=== PATIENT | female | born 1965 | race Caucasian/White ===

== ENCOUNTER 2020-11-29 14:17 | Outpatient (CLI) | payer OTHER, SELFPAY ==
[2020-11-30 22:34] LABS: SARS-CoV-2 RNA PCR Negative
== END 2020-11-29 14:18 | disposition home or self-care (01) ==
PROVIDERS: PCP Family Medicine; Visit Provider Family Medicine
DX: Z20.822 Contact with and (suspected) exposure to COVID-19 (principal)
CPT/HCPCS: C9803; U0003; U0005

== ENCOUNTER 2021-02-17 11:17 | Outpatient (NON) | payer OTHER, SELFPAY | END 2021-02-17 11:18 | disposition home or self-care (01) | PROVIDERS: Visit Provider Family Medicine | DX: N39.0 Urinary tract infection, site not specified (principal) | CPT/HCPCS: 87077; 87086; 87088; 87186 ==

== ENCOUNTER 2021-07-04 08:47 | Emergency (ER) | payer OTHER, SELFPAY ==
--- NOTE | ~2021-07-04 | XR_ITS ---
EXAMINATION: XR hip RT 2V w AP pelvis INDICATION: Right hip pain TECHNIQUE: AP view of the pelvis and two views of the right hip are obtained. COMPARISON: None available FINDINGS: Bone alignment is normal. There is no fracture. There is mild osteoarthritis of the hip. Ph leboliths are noted in the pelvis. There is calcified atherosclerosis. IMPRESSION: 1. Mild osteoarthritis of the hips. Reviewed, dictated and finalized at location A.
--- NOTE | 2021-07-04 08:58 | ED.EXTPRO ---
HPI - Extremity Problem General Chief complaint: Extremity Problem,Nontraumatic Stated complaint: HIP PAIN Time Seen by Provider: 07/04/21 09:03 Source: patient Mode of arrival: wheelchair Limitations: no limitations History of Present Illness HPI Narrative: 55-year-old woman comes in today complaining of right hip pain that started this morning and has become so severe she cannot bear weight. Patient states that her right hip was achy when she woke up this morning but after she got torque her pain became unbearable. She denies falls or injuries. She states that she has had sciatica long time ago. Pain radiates down to her right knee but not past. She denies any numbness or tingling. MD Complaint: joint paint Onset (ago): hour(s) (4) Pain Consistency: constant Location: right and other ( Hip) Quality: aching and sharp Radiation: distal Relieving factors: nothing Exacerbating factors: weight bearing, walking and palpation Associated symptoms: denies other symptoms Related Data Allergies Allergy/AdvReac Type Severity Reaction Status Date / Time azithromycin Allergy Intermediate Unknown Verified 02/17/21 11:25 [Zithromax Z-Lenny] erythromycin base Allergy Intermediate Unknown Verified 02/17/21 11:25 zinc oxide [Z-Bum] Allergy Intermediate Unknown Verified 02/17/21 11:25 No Known Allergies Allergy Verified 02/17/21 11:25 Review of Systems Review of Systems: All systems reviewed & are unremarkable except as noted in HPI and below Constitutional: Constitutional: Denies chills, Denies fever(s) and Denies weakness ENT: Denies nasal congestion and Denies sore throat Cardiovascular: Cardiovascular: Denies chest pain Respiratory: Respiratory: Denies cough and Denies dyspnea Gastrointestinal: Gastrointestinal: Denies abdominal pain, Denies nausea and Denies vomiting Musculoskeletal: Musculoskeletal: Reports back pain, Reports arthralgias and Denies joint swelling Integumentary/Breasts: Skin/Breast: Denies pruritus, Denies erythema and Denies rash Neurologic: Denies vertigo, Denies dizziness, Denies syncope, Denies focal weakness and Denies numbness Hematologic/Lymphatic: Hematologic/Lymphatic: Denies easy bleeding and Denies easy bruising Allergic/Immunologic: Allergic/Immunologic: Denies lip swelling and Denies throat swelling PMF Surgical History Surgical History History of appendectomy Social History Social History Smoking status: Current every day smoker Tobacco type: cigarettes Alcohol intake: current Substance use: never Substance use type: marijuana 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 Eyes: Conjunctivae: conjunctivae normal Pupils: Equal, round and reactive pupils present EOM: EOMs intact bilaterally Resp: Effort & Inspection: normal respiratory effort and not labored Auscultation: clear to auscultation bilaterally, no rales, no rhonchi and no wheezes Cardio: Rate: regular rate Rhythm: regular rhythm Heart sounds: no murmurs GI: GI Palp: Yes Soft to palpation and No Tenderness to palpation present (GI) Skin: General skin exam: normal color, no jaundice and no pallor Rashes: no rashes Neuro: General: patient oriented x3, moves all extremities, no focal motor deficits and CN's II-XI intact bilaterally Speech: normal speech Extrem: General: normal to inspection and no clubbing, cyanosis or edema Other: Tenderness with palpation over the right SI joint and the anterior hip joint. Held in flexion. Psych: Appearance: grossly normal and well kempt Mental Status: mental status grossly normal Affect: normal affect Attitude: cooperative Thought content: Yes Normal thought content present Course V
[2021-07-04 09:00] VITALS: BP 160/89; PULSE 66; RESP 20; TEMP 36.6; O2SAT 100
[2021-07-04] MEDS: ONDANSETRON INJ 4 MG/2 ML VIAL IV PUSH (09:24)
[2021-07-04] MEDS: HYDROmorphone HCL INJ (*CRX) 2 MG/ML VIAL 0.5 MG IV PUSH ×2 (09:25→10:12)
[2021-07-04 09:33] LABS: Basophils Absolute Auto 0.02 K/mm3 (0.00-0.10); Basophils Percent Auto 0.3 % (0.0-1.0); Eosinophils Absolute Auto 0.05 K/mm3 (0.02-0.50); Eosinophils Percent Auto 0.8 % (1.0-6.0); Hematocrit 37.8 % (35.0-49.0); Hemoglobin 12.8 g/dL (12.0-15.0); Immature Granulocyte Absolute 0.01 K/mm3 (0.00-0.00); Immature Granulocyte Percent A 0.2 % (0.0-0.0); Lymphocytes Absolute Auto 1.28 K/mm3 (1.10-4.50); Lymphocytes Percent Auto 19.6 % (18.0-42.0); Mean Corpuscular HGB Conc 33.9 g/dL (32.0-36.0); Mean Corpuscular Hemoglobin 31.2 pg (27.0-31.0); Mean Corpuscular Volume 92.2 fL (78.0-102.0); Mean Platelet Volume 10.1 fl (9.2-11.8); Monocytes Absolute Auto 0.46 K/mm3 (0.10-0.90); Monocytes Percent Auto 7.1 % (2.0-11.0); Neutrophils Absolute Auto 4.7 K/mm3 (1.7-7.2); Platelet Count Result 263 K/mm3 (150-420); Red Cell Distribution Width 12.8 % (11.6-14.4); White Blood Count 6.5 K/mm3 (4.8-10.8)
[2021-07-04 09:51] LABS: Alanine Aminotransferase 21 U/L (14-59); Albumin Level 3.6 g/dL (3.4-5.0); Alkaline Phosphatase 60 U/L (46-116); Anion Gap 10 mmol/L (8-16); Aspartate Amino Transferase 19 U/L (15-37); Bilirubin,Total 0.2 mg/dL (0.00-1.00); Blood Urea Nitrogen 16 mg/dL (7-18); Calcium 8.8 mg/dL (8.5-10.1); Carbon Dioxide 30 mmol/L (21-32); Chloride 103 mmol/L (98-108); Estimated CRCL calculation 63 ml/min; Estimated Glomerular Filt Rate > 60; Glucose 89 mg/dL (70-99); Osmolality Calculated 296 mOsm/kg (285-295); Potassium 4.3 mmol/L (3.5-5.1); Sodium 143 mmol/L (136-145); Total Protein 6.9 g/dL (6.4-8.2)
[2021-07-04 09:57] LABS: CRP < 0.2 mg/dL (0.0-0.9)
[2021-07-04 10:17] VITALS: BP 120/68; PULSE 88; RESP 18; TEMP 36.6; O2SAT 99
[2021-07-04 10:36] LABS: Erythrocyte Sedimentation Rate 24 mm/hr (0-20)
== END 2021-07-04 10:37 | disposition home or self-care (01) ==
PROVIDERS: Emergency Provider Emergency Medicine; PCP Nurse Practitioner Family
DX: M25.551 Pain in right hip (principal)
CPT/HCPCS: 36415; 73502; 80053; 85025; 85652; 86140; 96374; 96375; 96376; 99283; 99284; J1170; J2405

== ENCOUNTER 2022-03-28 16:52 | Emergency (ER) | payer OTHER, SELFPAY ==
--- NOTE | 2022-03-28 16:54 | ED_ITS ---
HPI - Back Pain/Injury General Stated Complaint: sleepy,back pain Related Data Home Medications Medication Instructions Recorded Confirmed No Home Medications 09/20/21 Allergies Allergy/AdvReac Type Severity Reaction Status Date / Time azithromycin Allergy Intermediate Unknown Verified 09/20/21 13:48 [Zithromax Z-Lenny] erythromycin base Allergy Intermediate Unknown Verified 09/20/21 13:48 zinc oxide [Z-Bum] Allergy Intermediate Unknown Verified 09/20/21 13:48 No Known Allergies Allergy Verified 09/20/21 13:48 [facility] Surgical History Surgical History History of appendectomy Social History Social History Smoking status: Current every day smoker Tobacco type: cigarettes Alcohol intake: current Substance use: never Substance use type: marijuana 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 cyclobenzaprine 10 mg tablet 10 mg PO .HS PRN (Reason: muscle spasm) Qty: 20 0RF Rx Instructions: can cause drowsiness Follow-up/Referrals: Lenora Salgado NP [Primary Care Provider] -
[2022-03-28 16:55] VITALS: BP 139/67; PULSE 94; RESP 18; TEMP 38.3; O2SAT 95
--- NOTE | 2022-03-28 17:12 | ED.GENADULT ---
HPI - General Adult General Chief complaint: Fever Stated complaint: sleepy,back pain Time Seen by Provider: 03/28/22 17:12 Source: patient and RN notes reviewed Mode of arrival: ambulatory Limitations: no limitations History of Present Illness HPI narrative: patient states that she started with some seen easing last evening. In today generalized body aches hurts when she takes a deep breath. Denies any chest pain. She denies any fever chills. Denies any nausea vomiting diarrhea. She denies any sore throat. She has been having a headache. MD complaint: body aches Onset (ago): day(s) (1) Severity: moderate Quality: aching, dull and constant Pain Consistency: constant Relieving factors: none Exacerbating factors: movement Associated symptoms: headaches, malaise and other ( Fatigue) Treatments prior to arrival: none Related Data Allergies Allergy/AdvReac Type Severity Reaction Status Date / Time azithromycin Allergy Intermediate Unknown Verified 03/28/22 17:09 [Zithromax Z-Lenny] erythromycin base Allergy Intermediate Unknown Verified 03/28/22 17:09 zinc oxide [Z-Bum] Allergy Intermediate Unknown Verified 03/28/22 17:09 Review of Systems Review of Systems: All systems reviewed & are unremarkable except as noted in HPI and below PMFSH Past Medical History Medical History (Updated 03/28/22 @ 18:09 by Jackson Meeks MD) Hyperlipidemia (03/19/17) Nicotine dependence, unspecified, uncomplicated Surgical History Surgical History History of appendectomy Social History Social History Smoking status: Current every day smoker Tobacco type: cigarettes Alcohol intake: current Substance use: never Substance use type: marijuana 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 Exam Const: General: no acute distress, alert and ill appearing acutely Nutritional Appearance: well nourished Orientation/consciousness: patient oriented x3 HENMT: Head: normal to inspection Ears: external ears normal General nose exam: Normal external nose present Face and sinus: normal facial exam Mouth: Yes moist mucous membranes Eyes: Conjunctivae: conjunctivae normal Pupils: Equal, round and reactive pupils present EOM: EOMs intact bilaterally Neck: Neck: normal visual inspection and no lymphadenopathy Resp: Effort & Inspection: normal respiratory effort Auscultation: wheezes throughout Cardio: Rate: regular rate Rhythm: regular rhythm Heart sounds: no murmurs GI: GI Palp: Yes Soft to palpation and No Tenderness to palpation present (GI) Auscultation: normal bowel sounds Back/Spine/Pelvis: Cervical Spine: cervical ROM normal Thoracic/Lumbar Spine: thoraco-lumbar ROM normal Skin: General skin exam: normal color Rashes: no rashes Neuro: General: patient oriented x3, moves all extremities, no focal motor deficits and CN's II-XI intact bilaterally Speech: normal speech Extrem: General: normal to inspection and no clubbing, cyanosis or edema Psych: Mental Status: mental status grossly normal Affect: normal affect Attitude: cooperative Course Vital Signs Vital signs: Vital Signs Temperature 38.3 C H 03/28/22 16:55 Pulse Rate 94 03/28/22 16:55 Respiratory Rate 18 03/28/22 16:55 Blood Pressure 139/67 03/28/22 16:55 Pulse Oximetry 95 03/28/22 16:55 Oxygen Delivery Room Air 03/28/22 16:55 Temperature 38.2 C H 03/28/22 18:20 Pulse Rate 90 03/28/22 18:20 Respiratory Rate 18 03/28/22 18:20 Blood Pressure 125/59 L 03/28/22 18:20 Pulse Oximetry 97 03/28/22 18:20 Oxygen Delivery Room Air 03/28/22 18:20 Medical Decision Making Vital Signs Vital Signs: Vital Signs Temperature 38.3 C H 03/28/22 16:55 Pulse Rate 94 03/28/22 16:55 Respiratory Rate 18 03/28/22 16:55 Blood Pressure 139/67 03/28/22 16:55 Pulse Oximetry 95 03/28/22 16
[2022-03-28 17:21] LABS: Add Urine Microscopic? YES; Bilirubin Urine Negative (Negative); Blood Urine 1+ (Negative); Color Urine Light Yellow (Yellow); Glucose Urine UA Negative (Negative); Ketones Urine Trace (Negative); Leukocyte Esterase Ur Negative LEU/UL (Negative); Nitrate Urine Positive (Negative); Protein Urine Negative (Negative); Specific Grav Ur 1.025 (1.010-1.020); pH Urine 6.5 (5.0-8.0)
[2022-03-28 17:22] LABS: Hematocrit 38.7 % (35.0-49.0); Hemoglobin 12.8 g/dL (12.0-15.0); Mean Corpuscular HGB Conc 33.1 g/dL (32.0-36.0); Mean Corpuscular Hemoglobin 30.3 pg (27.0-31.0); Mean Corpuscular Volume 91.5 fL (78.0-102.0); Mean Platelet Volume 9.9 fl (9.2-11.8); Platelet Count Result 257 K/mm3 (150-420); Red Blood Count 4.23 M/mm3 (4.20-5.40); Red Cell Distribution Width 12.8 % (11.6-14.4); White Blood Count 4.8 K/mm3 (4.8-10.8)
[2022-03-28 17:25] LABS: Appearance Urine Cloudy (Clear); Squamous Epithelial Cell Urine Few /hpf (Few); WBC Urine None seen /hpf (0-3)
[2022-03-28 17:26] LABS: Bacteria Urine 4+ /hpf
[2022-03-28 17:39] LABS: Alanine Aminotransferase 17 U/L (14-59); Albumin Level 3.7 g/dL (3.4-5.0); Alkaline Phosphatase 74 U/L (46-116); Anion Gap 8 mmol/L (8-16); Aspartate Amino Transferase 15 U/L (15-37); Bilirubin,Total 0.3 mg/dL (0.00-1.00); Blood Urea Nitrogen 10 mg/dL (7-18); Calcium 8.7 mg/dL (8.5-10.1); Carbon Dioxide 27 mmol/L (21-32); Chloride 96 mmol/L (98-108); Estimated CRCL calculation 60 ml/min; Estimated Glomerular Filt Rate > 60; Glucose 98 mg/dL (70-99); Osmolality Calculated 271 mOsm/kg (285-295); Potassium 3.9 mmol/L (3.5-5.1); Sodium 131 mmol/L (136-145); Total Protein 7.7 g/dL (6.4-8.2)
[2022-03-28 17:50] LABS: Influenza A QL RT-PCR Negative (Negative); Influenza B QL RT-PCR Negative (Negative); SARS-CoV-2 RNA PCR Positive (Negative)
[2022-03-28 17:52] LABS: Total Cells Counted 100
[2022-03-28 17:53] LABS: Band Neutrophils Percent 0 % (0-6); Basophils Percent Manual 0 % (0-1); Eosinophils Absolute Manual 0.09 K/mm3 (0.02-0.5); Eosinophils Percent Manual 2 % (1-6); Lymphocytes Absolute Manual 0.33 K/mm3 (1.1-4.5); Lymphocytes Percent Manual 7 % (18-44); Monocytes Absolute Manual 0.72 K/mm3 (0.1-0.90); Monocytes Percent Manual 15 % (3-9); Neutrophils Absolute Manual 3.64 K/mm3 (1.7-7.2); Neutrophils Percent Manual 76 % (46-73); Platelet Estimate Adequate (Adequate)
[2022-03-28 18:20] VITALS: BP 125/59; PULSE 90; RESP 18; TEMP 38.2; O2SAT 97
== END 2022-03-28 18:20 | disposition home or self-care (01) ==
PROVIDERS: Emergency Provider Emergency Medicine; PCP Nurse Practitioner Family
DX: U07.1 COVID-19 (principal); N39.0 Urinary tract infection, site not specified
CPT/HCPCS: 36415; 80053; 81001; 83735; 85025; 86140; 87086; 87186; 87502; 99283; C9803; U0003; U0005

== ENCOUNTER 2025-04-19 19:37 | Emergency (ER) | payer MEDICAID, SELFPAY ==
[2025-04-19] VITALS (8 sets, daily range): BP systolic 129–157; BP diastolic 59–92; PULSE 62–91; RESP 13–19; TEMP 36.5; O2SAT 93–97
--- NOTE | ~2025-04-19 | CT_ITS ---
EXAMINATION: CTA abd aorta runoff DATE: 04/19/2025 22:17 INDICATION: Periaortic bilateral leg numbness. TECHNIQUE: Computed tomographic angiography (CTA) of the abdominal, pelvis, and both lower extremitie s was performed with 150 mL Omnipaque-350 intravenous contrast. Automated exposure control and iterat gee reconstruction technique were employed. The dose-length product was 620.55 mGy-cm. Maximum intens ity projection 3D-reconstructions of the arteries were created by the technologist on a separate work station. COMPARISON: CT chest 03/13/2017; CT abdomen pelvis 06/29/2013. FINDINGS: ABDOMINAL AORTA AND ITS BRANCHES: No aneurysm or dissection. Moderate calcified and noncalcified atherosclerotic plaque. No severe aort ic branch vessel origin stenosis. Accessory left renal artery. PELVIC VASCULATURE: Moderate calcified atherosclerotic plaque. Severe left external iliac artery origin stenosis. RIGHT LOWER EXTREMITY VASCULATURE: Short segment noncalcified plaque in the proximal SFA causing moderate stenosis. Occlusion, just dist al to takeoff of the anterior tibial artery. Cessation of flow in the anterior tibial and peroneal ar teries above the level of the ankle. Spotty reconstitution of flow within the posterior tibial artery distal to the trifurcation, with cessation of flow below the level of the ankle. LEFT LOWER EXTREMITY VASCULATURE: Occlusion at the trifurcation. Distal reconstitution of flow in all 3 leg arteries. Flow is lost in t he peroneal artery above the level of the ankle. Flow is lost in the anterior tibial artery just belo w the level of the ankle. There is short segment loss of flow in the posterior tibial artery with rec onstitution distally in the foot. ADDITIONAL FINDINGS: Small pericardial fluid collection. Small hiatal hernia. Subcentimeter left midpole hypodensity, too small to characterize but most likely represents a cyst. 1.3 cm indeterminate density left adrenal le keon. Mild distal esophageal and moderate antral wall edema. Appendix not confidently identified. Sim ple appearing 1.8 cm right ovarian cyst. IMPRESSION: Small volume pericardial effusion. 1.3 cm indeterminate density left adrenal lesion. The absence of cancer history, this is probably esdras ign, consider 12 month follow-up adrenal CT. Severe short segment stenosis at the origin of the left external iliac artery. Noncalcified plaque causes moderate short segment stenosis in the proximal right SFA. Posterior tibial and peroneal occlusion in the right leg just distal to the takeoff of the anterior t ibial artery. No flow is seen below the level of the ankle in the right leg. Occlusion at the trifurcation in the left leg, with reconstitution of flow distally. 2 vessel flow vi a the anterior tibial and posterior tibial arteries below the level of the ankle, with cessation of f low in the anterior tibial artery shortly thereafter. Short segment occlusion in the distal posterior tibial artery below the level of the ankle, with distal reconstitution in the foot. Reviewed, dictated and finalized at location K. IMPRESSION: Small volume pericardial effusion. 1.3 cm indeterminate density left adrenal lesion. The absence of cancer history , this is probably benign, consider 12 month follow-up adrenal CT. Severe short segment stenosis at the origin of the left external iliac artery. Noncalcified plaque causes moderate short segment stenosis in the proximal righ t SFA. Posterior tibial and peroneal occlusion in the right leg just distal to the antwan eoff of the anterior tibial artery. No flow is seen below the level of the ankl e in the right leg. Occlusion at the trifurcation in the left leg, with reconstitution of flow dist ally. 2 vessel flow via the anterior tibial and posterior tibial arteries below the level of the ankle, with cessation of flow in the anterior tibial artery s hortly thereafter. Short segment occlusion in the distal posterior tibial arter y below the level of the ankle, with distal reconstitution in the foot.
--- NOTE | ~2025-04-19 | XR_ITS ---
EXAMINATION: XR chest 1V portable Exam Date/Time: 04/19/2025 21:05 CDT HISTORY: numbness lower extremities Comparison: 10/03/2017. RESULT: Lines, tubes, and devices: None. Lungs and pleura: Clear. Cardiomediastinal silhouette: Stable. Other: No acute osseous or upper abdominal finding. IMPRESSION: No acute cardiopulmonary process. Reviewed, dictated and finalized at location K.
--- NOTE | 2025-04-19 20:12 | PC.NURSE ---
DR VENTURA AT THE BEDSIDE
--- NOTE | 2025-04-19 20:25 | PC.NURSE ---
DR VENTURA AT THE BEDSIDE. ATTEMPTING TO USE DOPPLER WITH NO RESULTS.
--- NOTE | 2025-04-19 20:26 | ED_ITS ---
HPI - Extremity Injury (Lower) General Chief Complaint: Extremity Injury, Lower Stated Complaint: lower extremity pain Time Seen by Provider: 04/19/25 20:04 Source: patient Mode of arrival: ambulatory Limitations: no limitations History of Present Illness HPI Narrative: 59 years old white female came to the ED by private car complaining of feeling intermittent weakness, numbness, tingling ,distal leg bilaterally started 1 month ago and gradually getting worse. worse wearing shoes standing and walking, better if she hanging her legs out of the bed or chair. Sometime feel more in 1 ft more than the other and sometime both feet at the same time. Also intermittent cramps at the side of legs and bottom of feet bilaterally. Patient does not take regular medications, history of cigarette smoking for years Related Data Allergies Allergy/AdvReac Type Severity Reaction Status Date / Time azithromycin (Zithromax Allergy Intermediate Unknown Verified 04/19/25 19:53 Z-Lenny) erythromycin base Allergy Intermediate Unknown Verified 04/19/25 19:53 zinc oxide (Z-Bum) Allergy Intermediate Unknown Verified 04/19/25 19:53 Review of Systems 2 Review of Systems: All systems reviewed & are unremarkable except as noted in HPI and below PMFSH Past Medical History Medical History Hyperlipidemia (03/19/17) Nicotine dependence, unspecified, uncomplicated Surgical History Surgical History History of appendectomy Social History Social History Smoking status: Current every day smoker Tobacco type: cigarettes Alcohol intake: current Substance use: never Substance use type: marijuana Living arrangements: with family Occupation/Education: occupation 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 PATIENT WILL RECEIVE A PHONE CALL FROM HER OFFICE IN THE MORNING FOR APPOINTMENT Date: 04/19/25 Time: 23:50 Vital Signs Vital signs: Vital Signs Temperature 36.5 C 04/19/25 19:39 Pulse Rate 91 04/19/25 19:39 Respiratory Rate 18 04/19/25 19:39 Blood Pressure 129/76 04/19/25 19:39 Pulse Oximetry 97 04/19/25 19:39 Oxygen Delivery Room Air 04/19/25 19:39 Temperature 36.5 C 04/19/25 19:39 Pulse Rate 65 04/19/25 23:31 Respiratory Rate 16 04/19/25 23:31 Blood Pressure 141/74 H 04/19/25 23:31 Pulse Oximetry 93 04/19/25 23:31 Oxygen Delivery Room Air 04/19/25 23:31 MDM - Extremity Injury (Lower) MDM Narrative Medical decision making narrative: patient presents with the above symptoms including cold feet bilaterally been going for 1 month getting worse lately History of tobacco abuse Vital signs are stable Physical examination consistent with poor peripheral circulation of the lower extremity bilaterally, unable to detect pedal pulses or tibialis posterior pulses bilaterally Heparin started Differential diagnosis acute occlusion of the arterial blood flow to lower extremities secondary thrombosis, embolization. Blood workup today includes CBC, CMP and coags showed Differential Diagnosis Differential diagnosis: Likely other ( as above) Medical Records Attestation: I reviewed the patient's medical records. Lab Data Attestation: I reviewed the patient's lab results. 04/19/25 20:38 04/19/25 20:38 Labs: Lab Results 04/19/25 Range/Units 20:38 WBC 7.1 (4.8-10.8) K/mm3 RBC 4.23 (4.20-5.40) M/mm3 Hgb 12.8 (12.0-15.0) g/dL Hct 39.1 (35.0-49.0) % MCV 92.4 (78.0-102.0) fL MCH 30.3 (27.0-31.0) pg MCHC 32.7 (32-36) g/dL RDW 13.2 (11.6-14.4) % Plt Count 287 (150-420) K/mm3 MPV 10.0 (9.2-11.8) fl Immature Gran % (Auto) 0.1 H (0.0-0.0) % Neut % (Auto) 52.0 (50.0-70.0) % Lymph % (Auto) 34.6 (18.0-42.0) % Wolfe % (Auto) 10.3 (2.0-11.0) % Eos % (Auto) 2.4 (1.0-6.0) % Baso % (Auto) 0.6 (0.0-1.0) % Lymph # (Auto) 2.44 (1.10-4.50) K/mm3 Wolfe # (Auto) 0.73 (0.10-0.90) K/mm3 Eos # (Auto) 0.17 (0.02-0.50) K/mm3 Baso # (Auto) 0.04 (0.00-0.10) K/mm3 Abs Immat Gran (auto) 0.01 H (0.00-0.00) K/mm3 Absolute Neuts (auto) 3.67 (1.70-7.20) K/mm3 Absolute Nucleated RBC 0.00 (0.00-0.00) K/mm3 Nucleated RBC % 0.0 (0-0.0) % PT 10.3 (9.50-12.1) Seconds INR 0.9 APTT 23.7 L (23.9-30.70) Sec Sodium 137 (137-145) mmol/L Potassium 4.1 (3.4-5.0) mmol/L Chloride 103 (98-107) mmol/L Carbon Dioxide 31 H (22-30) mmol/L Anion Gap 3 L (4-12) mmol/L BUN 14 (7-17) mg/dL Creatinine 0.73 (0.7-1.0) mg/dL Estim Creat Clear Calc 62 ml/min Estimated GFR > 60 (59 - ) Glucose 86 (65-110) mg/dL Calculated Osmolality 283 L (285-295) mOsm/kg Calcium 8.9 (8.4-10.2) mg/dL Total Bilirubin 0.3 (0.2-1.3) mg/dL AST 23 (14-36) U/L ALT 15 (6-35) U/L Alkaline Phosphatase 58 (38-126) U/L Total Protein 7.1 (6.3-8.2) g/dL Albumin 4.0 (3.5-5.1) g/dL Discharge Plan Discharge Clinical Impression: Peripheral vascular disease of extremity with claudication, Tobacco abuse disorder Patient Disposition: Home Condition: Guarded Prognosis Instructions: How to Stop Smoking (ED), Peripheral Vascular Disease (ED) Additional Instructions: expect a phone call from the vascular surgeon, natalia Newton tomorrow Avoid strenuous activity and long walking Stop smoking Take Tylenol, ibuprofen as needed for pain Patient Language: Citizen Of [place] Prescriptions: New aspirin 81 mg tablet 81 mg PO DAILY Qty: 30 0RF atorvastatin [Lipitor] 10 mg tablet 10 mg PO DAILY Qty: 30 0RF No Action cephalexin 500 mg capsule 500 mg PO Q8H 7 Days Qty: 21 0RF Follow-up/Referrals: Lenora Salgado NP [Primary Care Provider] -
--- NOTE | 2025-04-19 20:27 | ECG_ITS ---
Test Date: 2025-04-19 20:48:41 Measurements Intervals [place] Rate: 70 P: 82 [place]: 168 QRS: 75 QRSD: 82 T: 76 QT: 368 QTc: 397 Interpretive Statements SINUS RHYTHM LOW QRS VOLTAGE IN PRECORDIAL LEADS [QRS DEFLECTION < 1.0 mV IN CHEST LEADS] BORDERLINE ECG No previous ECG available for comparison Electronically Signed On 04-21-2025 12:57:40 CDT by Dickson Smith M.D.
--- NOTE | 2025-04-19 20:34 | PC.NURSE ---
THIS RN UTILIZED DOPPLER TO BILATERAL LOWER EXTREMITIES. UNABLE TO DOPPLER PEDAL PULSE. DR VENTURA WAS NOTIFIED. PLAN FOR TRANSFER FOR VASCULAR SERVICES.
--- NOTE | 2025-04-19 20:55 | PC.NURSE ---
DR VENTURA SPOKE WITH PATIENT. WHEN THIS RN WENT INTO THE ROOM PATIENT IS CRYING. PATIENT STATES THAT SHE IS OVERWHELMED AND HAVING DIFFICULTY PROCESSING THIS NEW INFORMATION. PATIENT REQUESTED THAT IV LINE BE PUT ON HOLD. SHE WOULD LIKE TO MAKE SOME PHONE CALLS. MORE EDUCATION WAS GIVEN ABOUT CURRENT DIAGNOSIS.
[2025-04-19 20:56] LABS: Hematocrit 39.1 % (35.0-49.0); Hemoglobin 12.8 g/dL (12.0-15.0); Immature Granulocyte Percent A 0.1 % (0.0-0.0); Lymphocytes Absolute Auto 2.44 K/mm3 (1.10-4.50); Mean Corpuscular HGB Conc 32.7 g/dL (32-36); Mean Corpuscular Hemoglobin 30.3 pg (27.0-31.0); Mean Corpuscular Volume 92.4 fL (78.0-102.0); Nucleated Red Blood Cells Absolute Auto 0.00 K/mm3 (0.00-0.00); Nucleated Red Blood Cells Perc 0.0 % (0-0.0); Platelet Count Result 287 K/mm3 (150-420); Red Blood Count 4.23 M/mm3 (4.20-5.40); White Blood Count 7.1 K/mm3 (4.8-10.8)
[2025-04-19 21:12] LABS: INR 0.9; Partial Thromboplastin Time 23.7 Sec (23.9-30.70); Prothrombin Time 10.3 Seconds (9.50-12.1)
--- NOTE | 2025-04-19 21:14 | PC.NURSE ---
PATIENT CHANGED BACK INTO HER CLOTHES. ASKED PATIENT TO PLACE THE GOWN BACK ON. PATIENT HAS FURTHER IMAGING THAT WILL BE DONE
[2025-04-19 21:18] LABS: Alanine Aminotransferase 15 U/L (6-35); Albumin Level 4.0 g/dL (3.5-5.1); Alkaline Phosphatase 58 U/L (38-126); Anion Gap 3 mmol/L (4-12); Aspartate Amino Transferase 23 U/L (14-36); Bilirubin,Total 0.3 mg/dL (0.2-1.3); Blood Urea Nitrogen 14 mg/dL (7-17); Calcium 8.9 mg/dL (8.4-10.2); Carbon Dioxide 31 mmol/L (22-30); Chloride 103 mmol/L (98-107); Estimated CRCL calculation 62 ml/min; Estimated Glomerular Filt Rate > 60; Glucose 86 mg/dL (65-110); Osmolality Calculated 283 mOsm/kg (285-295); Potassium 4.1 mmol/L (3.4-5.0); Sodium 137 mmol/L (137-145); Total Protein 7.1 g/dL (6.3-8.2)
[2025-04-19] MEDS: HEPARIN SOD/D5W 100 UNITS/ML 25,000 UNITS/250 ML BAG 7 UNITS IV CONT (21:25)
--- NOTE | 2025-04-19 21:41 | PC.NURSE ---
NOTIFIED KAMRYN WITH LAB OF NEXT PTT DRAW AT [id number]
--- NOTE | 2025-04-19 21:58 | PC.NURSE ---
PATIENT BEING TRANSPORTED TO RADIOLOGY VIA WHEEL CHAIR
--- NOTE | 2025-04-19 22:17 | PC.NURSE ---
PATIENT IS MOANING AND WAILING IN THE ROOM WHEN SHE WAS QUIET BEFORE. ALL IMAGING HAS RESULTED. DR VENTURA IS AWARE
--- NOTE | 2025-04-19 22:40 | PC.NURSE ---
PATIENT IS RESTING ON STRETCHER. CALL LIGHT IN REACH. AWARE THAT WE ARE CURRENTLY WAITING ON CT REPORT. DENIES ANY NEEDS AT THIS TIME
[2025-04-19] MEDS: PHARMACIST COMMUNICATION ORDER 1 EACH XX (23:15)
== END 2025-04-20 00:05 | disposition home or self-care (01) ==
PROVIDERS: Emergency Provider Emergency Medicine; PCP Nurse Practitioner Family
DX: I73.89 Other specified peripheral vascular diseases (principal); F17.210 Nicotine dependence, cigarettes, uncomplicated
CPT/HCPCS: 36415; 71045; 75635; 80053; 85025; 85610; 85730; 93005; 96365; 96366; 99284; J1644; Q9967

== ENCOUNTER 2025-05-10 15:25 | Outpatient (CLI) | payer MEDICAID, SELFPAY ==
[2025-05-10 15:41] LABS: Hematocrit 38.0 % (35.0-49.0); Hemoglobin 12.6 g/dL (12.0-15.0); Immature Granulocyte Percent A 0.3 % (0.0-0.0); Lymphocytes Absolute Auto 2.18 K/mm3 (1.10-4.50); Mean Corpuscular HGB Conc 33.2 g/dL (32-36); Mean Corpuscular Hemoglobin 30.7 pg (27.0-31.0); Mean Corpuscular Volume 92.7 fL (78.0-102.0); Nucleated Red Blood Cells Absolute Auto 0.00 K/mm3 (0.00-0.00); Nucleated Red Blood Cells Perc 0.0 % (0-0.0); Platelet Count Result 320 K/mm3 (150-420); Red Blood Count 4.10 M/mm3 (4.20-5.40); White Blood Count 6.3 K/mm3 (4.8-10.8)
[2025-05-10 15:44] LABS: Glucose Urine UA Negative (Negative); Leukocyte Esterase Ur Negative LEU/UL (Negative); Nitrate Urine Negative (Negative); Specific Grav Ur 1.015 (1.010-1.020)
[2025-05-10 15:45] LABS: Add Urine Microscopic? YES; Appearance Urine Sl Cloudy (Clear)
[2025-05-10 16:06] LABS: Alanine Aminotransferase 16 U/L (6-35); Albumin Level 4.2 g/dL (3.5-5.1); Alkaline Phosphatase 54 U/L (38-126); Anion Gap 2 mmol/L (4-12); Aspartate Amino Transferase 25 U/L (14-36); Bilirubin,Total 0.3 mg/dL (0.2-1.3); Blood Urea Nitrogen 17 mg/dL (7-17); Calcium 9.0 mg/dL (8.4-10.2); Carbon Dioxide 30 mmol/L (22-30); Chloride 105 mmol/L (98-107); Estimated Glomerular Filt Rate > 60; Glucose 73 mg/dL (65-110); Osmolality Calculated 284 mOsm/kg (285-295); Potassium 4.5 mmol/L (3.4-5.0); Sodium 137 mmol/L (137-145); Total Protein 7.1 g/dL (6.3-8.2)
== END 2025-05-10 15:26 | disposition home or self-care (01) ==
LOC: CHSLAB 15:27
PROVIDERS: PCP Nurse Practitioner Family; Visit Provider Nurse Practitioner Family
DX: Z01.818 Encounter for other preprocedural examination (principal)
CPT/HCPCS: 36415; 80053; 81001; 85025

== ENCOUNTER 2025-06-19 | Inpatient (IN) | payer MEDICAID, SELFPAY ==
[2025-06-19] VITALS: BP 161/93; PULSE 107; RESP 18; TEMP 37.2; O2SAT 96
--- NOTE | ~2025-06-19 | XR_ITS ---
EXAMINATION: XR foot RT min 3V, 06/19/2025 0:08 CDT HISTORY: OM r/o (red and swollen) COMPARISON: No comparisons available. Findings: No acute fracture or malalignment. No significant degenerative changes. Soft tissues unremarkable. Impression: No acute fracture or malalignment. Reviewed, dictated and finalized at location A. Impression: No acute fracture or malalignment.
--- NOTE | ~2025-06-19 | CT_ITS ---
EXAMINATION: CT foot RT wo/w con DATE: 06/21/2025 10:06 INDICATION: Right foot swelling, discoloration and sensitivity to touch TECHNIQUE: High resolution computed tomography (CT) of the right foot was performed without and with 100 mL Omnipaque-350 intravenous contrast. Additional sagittal and coronal reconstructions were performed. Automated exposure control and iterative reconstruction technique were employed. The dose-length product was 1001.57 mGy-cm. COMPARISON: 04/19/2025 FINDINGS: Bone alignment is normal. No fracture. Minimal to mild polyarticular osteoarthritis throughout the right foot. No cortical erosions or periosteal reaction. Small Achilles and plantar calcaneal spurs. No evident joint effusions. There is subcutaneous edema about the visualized calf, ankle and extending most prominently over the dorsum of the foot. No evident abscess or soft tissue gas. Contrast is seen in the mid anterior tibial artery which occludes approximately 10 cm above the level of the ankle joint. Contrast is seen along short segments of the posterior tibial artery with intermittent occlusion the final occlusion occurring 4 cm above level of the ankle joint. Trace amount of contrast seen within the atretic peroneal artery extending to near the level of the ankle joint line. IMPRESSION: 1. Subcutaneous edema about the visualized lower leg most prominent over the dorsum of the foot. No abscess or soft tissue gas to suggest infection. 2. Peripheral vascular disease with occlusion of 2 tibial and posterior tibial arteries above level of the ankle and trace amount of contrast within the atretic peroneal artery which becomes indiscernible near the level of the ankle joint line. 2. Minimal to mild degenerative skeletal changes in the right foot. No acute osseous abnormality. Reviewed, dictated and finalized at location A. IMPRESSION: 1. Subcutaneous edema about the visualized lower leg most prominent over the do rsum of the foot. No abscess or soft tissue gas to suggest infection. 2. Peripheral vascular disease with occlusion of 2 tibial and posterior tibial arteries above level of the ankle and trace amount of contrast within the atret ic peroneal artery which becomes indiscernible near the level of the ankle join t line. 2. Minimal to mild degenerative skeletal changes in the right foot. No acute os seous abnormality.
--- NOTE | 2025-06-19 00:04 | ED_ITS ---
HPI - Extremity Injury (Lower) General Chief Complaint: Extremity Problem,Nontraumatic Stated Complaint: swollen foot Time Seen by Provider: 06/19/25 00:03 Source: patient Mode of arrival: ambulatory Limitations: no limitations History of Present Illness HPI Narrative: Patient is a 59-year-old female with upcoming right lower extremity artery graft exchange for PAD in the next week. She is here due to right lower extremity for foot pain and swelling for the past couple of days. She recently had her right foot great toe nail removal for ingrown toenail. She has red and swelling of the right lower foot from the ankle to the distal toes. complaint: foot injury ( Pain but not injury) Onset (ago): week(s) ( 1) Type of Injury: other ( great toenail removed on the right in the past 2 weeks) Place: home Severity: severe Severity scale (1-10): 8 Relieving factors: rest Exacerbating factors: weight bearing, movement and palpation Context: other ( right great toenail was removed recently and now she has a right foot swelling and pain and further she has PAD repair coming up in the next 2 weeks of the right lower extremity) Associated symptoms: numbness, tingling and able to partially bear weight Other symptoms: none Treatments prior to arrival: other ( none) Related Data Home Medications ?Medication ?Instructions ?Recorded ?Confirmed ?Last Taken ?Type acetaminophen 500 mg tablet 500 mg PO Q6H PRN 06/01/25 06/01/25 Unknown History (Tylenol Extra Strength) Allergies Allergy/AdvReac Type Severity Reaction Status Date / Time azithromycin (Zithromax Allergy Intermediate Unknown Verified 06/19/25 00:09 Z-Lenny) erythromycin base Allergy Intermediate Unknown Verified 06/19/25 00:09 zinc oxide (Z-Bum) Allergy Intermediate Unknown Verified 06/19/25 00:09 Review of Systems 2 Review of Systems: All systems reviewed & are unremarkable except as noted in HPI and below Constitutional: Constitutional: Reports no additional constitutional complaints Eyes: Eyes: Reports no additional eye complaints ENT: Reports system reviewed and no additional complaints, except as documented Cardiovascular: Cardiovascular: Reports no additional cardiovascular complaints Respiratory: Respiratory: Reports no additional respiratory complaints Gastrointestinal: Gastrointestinal: Reports no additional gastrointestinal complaints Genitourinary: Genitourinary: Reports no additional female genitourinary complaints Musculoskeletal: Musculoskeletal: Reports no additional musculoskeletal complaints Integumentary/Breasts: Skin/Breast: Reports system reviewed and no additional complaints, except as docu Neurologic: Reports system reviewed and no additional complaints, except as documented Psychiatric: Psychiatric: Reports no additional psychiatric complaints Endocrine: Endocrine: Reports no additional endocrine complaints Hematologic/Lymphatic: Hematologic/Lymphatic: Reports no additional hematologic/lymphatic complaints Allergic/Immunologic: Allergic/Immunologic: Reports no additional allergic/immunologic complaints PMFSH Past Medical History Medical History Hyperlipidemia (03/19/17) Nicotine dependence, unspecified, uncomplicated Surgical History Surgical History History of appendectomy Social History Social History Smoking status: Current every day smoker Tobacco type: cigarettes Alcohol intake: current Substance use: never Substance use type: marijuana Living arrangements: with family Occupation/Education: occupation 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 Exam 2 Const: General: healthy appearing Nutritional Appearance: well nourished Orientation/consciousness: patient oriented x3 HENMT: Head: normal to inspection Ears: external ears normal F alvarado/Nose/Sinus: Normal external nose present Eyes: Conjunctivae: conjunctivae normal Pupils: Equal, round and reactive pupils present EOM: EOMs intact bilaterally Neck: Neck: normal visual inspection Chest: Chest palpation & inspection: normal inspection of the chest Resp: Effort & Inspection: normal respiratory effort Cardio: Rate: regular rate Rhythm: regular rhythm Heart sounds: no murmurs GI: Inspection: non-distended GI Palp: Yes Soft to palpation and No Tenderness to palpation present (GI) Auscultation: normal bowel sounds : General: Yes bladder normal to palpation Back/Spine/Pelvis: Back: no CVA tenderness Skin: General skin exam: No normal color Rashes: rash noted Wounds: no wounds Other: right foot is red from the distal toes all the way to the right ankle and possibly circumferentially or close to circumferentially of erythema and tenderness; this is the same toe that the nail was removed and it looks red all around that area and down to the right ankle; history of gout in this same region; a few small scattered late wounds of healing wounds Neuro: General: patient oriented x3, moves all extremities, no meningeal signs, no focal motor deficits and CN's II-XI intact bilaterally Cranial nerves: Yes Nystagmus not present Speech: normal speech Gait exam (Neuro): Normal gait present Extrem: General: abnormal to inspection Other: see skin exam Psych: Mental Status: mental status grossly normal Affect: normal affect Attitude: cooperative Course Vital Signs Vital signs: Vital Signs Temperature 37.2 C 06/19/25 00:00 Pulse Rate 107 H 06/19/25 00:00 Respiratory Rate 18 06/19/25 00:00 Blood Pressure 161/93 H 06/19/25 00:00 Pulse Oximetry 96 06/19/25 00:00 Oxygen Delivery Room Air 06/19/25 00:00 Temperature 37.2 C 06/19/25 00:00 Pulse Rate 107 H 06/19/25 00:00 Respiratory Rate 18 06/19/25 00:00 Blood Pressure 161/93 H 06/19/25 00:00 Pulse Oximetry 96 06/19/25 00:00 Oxygen Delivery Room Air 06/19/25 00:00 MDM - Extremity Injury (Lower) MDM Narrative Medical decision making narrative: patient is a 59-year-old female with a right foot pain and swelling with upcoming repair planned. Basic labs start Rocephin and vanco IV. Dilaudid p.r.n.. Admit patient for further and continued IV antibiotics. X-ray. Lab Data Attestation: I reviewed the patient's lab results. 06/19/25 01:11 06/19/25 01:11 Labs: Lab Results 06/19/25 Range/Units 01:11 WBC 9.8 (4.8-10.8) K/mm3 RBC 3.96 L (4.20-5.40) M/mm3 Hgb 12.3 (12.0-15.0) g/dL Hct 38.2 (35.0-49.0) % MCV 96.5 (78.0-102.0) fL MCH 31.1 H (27.0-31.0) pg MCHC 32.2 (32-36) g/dL RDW 14.2 (11.6-14.4) % Plt Count 430 H (150-420) K/mm3 MPV 9.4 (9.2-11.8) fl Immature Gran % (Auto) 0.3 H (0.0-0.0) % Neut % (Auto) 62.5 (50.0-70.0) % Lymph % (Auto) 26.5 (18.0-42.0) % [place] % (Auto) 6.6 (2.0-11.0) % Eos % (Auto) 3.5 (1.0-6.0) % Baso % (Auto) 0.6 (0.0-1.0) % Lymph # (Auto) 2.60 (1.10-4.50) K/mm3 [place] # (Auto) 0.65 (0.10-0.90) K/mm3 Eos # (Auto) 0.34 (0.02-0.50) K/mm3 Baso # (Auto) 0.06 (0.00-0.10) K/mm3 Abs Immat Gran (auto) 0.03 H (0.00-0.00) K/mm3 Absolute Neuts (auto) 6.12 (1.70-7.20) K/mm3 Absolute Nucleated RBC 0.00 (0.00-0.00) K/mm3 Nucleated RBC % 0.0 (0-0.0) % Sodium 140 (137-145) mmol/L Potassium 4.2 (3.4-5.0) mmol/L Chloride 104 (98-107) mmol/L Carbon Dioxide 26 (22-30) mmol/L Anion Gap 10 (4-12) mmol/L BUN 17 (7-17) mg/dL Creatinine 0.69 L (0.7-1.0) mg/dL Estim Creat Clear Calc 65 ml/min Estimated GFR > 60 (59 - ) Glucose 103 (65-110) mg/dL Calculated Osmolality 291 (285-295) mOsm/kg Lactic Acid 0.7 (0.4-2.0) mmol/L Calcium 10.2 (8.4-10.2) mg/dL Total Bilirubin 0.3 (0.2-1.3) mg/dL AST 55 H (14-36) U/L ALT 60 H (6-35) U/L Alkaline Phosphatase 70 (38-126) U/L C-Reactive Protein < 0.5 (<1.0) mg/dL Total Protein 8.2 (6.3-8.2) g/dL Albumin 4.8 (3.5-5.1) g/dL Imaging Data Attestation: I personally reviewed and interpreted this imaging study as follows: Radiologist's impression: X-ray right foot shows swelling and otherwise no acute findings Discharge Plan Discharge Clinical Impression: Peripheral vascular disease with claudication, Cellulitis of foot, right Patient Disposition: Acute Care [facility] Condition: Stable Patient Language: Comoran Prescriptions: No Action aspirin 81 mg tablet 81 mg PO DAILY Qty: 30 0RF acetaminophen [Tylenol Extra Strength] 500 mg tablet 500 mg PO Q6H PRN lisinopril 5 mg tablet 5 mg PO DAILY Qty: 90 0RF cilostazol 100 mg tablet 100 mg PO BID Qty: 60 0RF atorvastatin [Lipitor] 40 mg tablet 40 mg PO DAILY Qty: 90 0RF diclofenac potassium 50 mg tablet 50 mg PO BID Qty: 60 0RF Follow-up/Referrals: Johny Dumont DO [Primary Care Provider, [facility]] Time of Disposition: 00:51
--- OUTSIDE RECORDS SUMMARY | 2025-06-19 00:18 | XMS_ITS | Clinical Summary ---
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 Role Phone Unavailable Primary Care Provider Unavailabl e Social History Tobacco Use Types Packs/Day Years Used Date Smoking Tobacco: Never Assessed Comments Unknown Sex and Gender Information Value Date Recorded Sex Assigned at Not on file Legal Sex Female 9:26 PM CDT Gender Identity Not on file Sexual Orientation Not on file Plan of Treatment Upcoming Encounters Date Type Department Care Team (Latest Contact Info) Description 06/30/2025 8:00 AM CDT Hospital Encounter [facility] [address] [place] [address] Krystle Hearn MD [address] [place] [phone] 06/30/2025 8:00 AM CDT - 06/30/2025 11:40 AM CDT Surgery [facility] [address] [place] [address] Krystle Hearn MD [address] [place] [phone] LOWER EXTREMITY POPLITEAL CUTDOWN WITH ANGIOGRAM, POSSIBLE FEMORAL TIBIAL BYPASS WITH LEFT VEIN HARVEST Scheduled Procedures Name Priority Associated Diagnoses Date/Ti me BYPASS GRAFT FEMORAL TIBIAL PAD 06/30/2025 8:00 AM CDT Health Maintenance Due Date Last Done Comments Cervical Cancer Screening Pa p Smear (Age 30 to 64) Every 3 Years 1965 Colorectal Cancer Screening Colonoscopy (10 Years) 1965 Annual Physical 1968 Hepatitis C 1983 DTaP, Tdap and Td Vaccines ( 1 - Tdap) 1984 Cervical Cancer Screening Pa p with HPV Testing (Age 30 to 64) Every 5 Years 1995 Cervical Cancer Screening with HPV 1995 Mammogram Screening 2005 Pneumococcal Vaccine: 50+ Ye ars (1 of 1 - PCV) 2015 Zoster Vaccines (1 of 2) 2015 COVID-19 Vaccine (2023-2 5 season) 2024 Meningococcal B Vaccine Aged Out No l onger eligible based on patient's age to complete this topic Meningococcal Vaccine Aged Out No fredrick chasidy eligible based on patient's age to complete this topic RSV Immunizations Under 20 Months Aged Out No longer eligible based on patient's age to complete this topic Goals Goal Patient Goal Type Associated Problems Recent Progress Patient-Stated? Author Autogenera shruthi Goal Care Plan Autogenerated Problem No Pati Lawson Additional Health Concerns Active Problems Noted Date Diagnosed Date Autogenerated Problem 06/17/2025
[2025-06-19] MEDS: ONDANSETRON INJ 4 MG/2 ML VIAL IV PUSH (00:57)
[2025-06-19] MEDS: HYDROmorphone HCL INJ (*CRX) 2 MG/ML VIAL 0.5 MG IV PUSH ×2 (00:57→06:03)
[2025-06-19] MEDS: cefTRIAXone 1 GM in SODIUM CHLORIDE 0.9% IV 50 ML 100 ML IVPB ×2 (01:13→12:15)
[2025-06-19 01:21] LABS: Hematocrit 38.2 % (35.0-49.0); Hemoglobin 12.3 g/dL (12.0-15.0); Immature Granulocyte Percent A 0.3 % (0.0-0.0); Lymphocytes Absolute Auto 2.60 K/mm3 (1.10-4.50); Mean Corpuscular HGB Conc 32.2 g/dL (32-36); Mean Corpuscular Hemoglobin 31.1 pg (27.0-31.0); Mean Corpuscular Volume 96.5 fL (78.0-102.0); Nucleated Red Blood Cells Absolute Auto 0.00 K/mm3 (0.00-0.00); Nucleated Red Blood Cells Perc 0.0 % (0-0.0); Platelet Count Result 430 K/mm3 (150-420); Red Blood Count 3.96 M/mm3 (4.20-5.40); White Blood Count 9.8 K/mm3 (4.8-10.8)
[2025-06-19 01:38] LABS: Alanine Aminotransferase 60 U/L (6-35); Albumin Level 4.8 g/dL (3.5-5.1); Alkaline Phosphatase 70 U/L (38-126); Anion Gap 10 mmol/L (4-12); Aspartate Amino Transferase 55 U/L (14-36); Bilirubin,Total 0.3 mg/dL (0.2-1.3); Blood Urea Nitrogen 17 mg/dL (7-17); CRP < 0.5 mg/dL (<1.0); Carbon Dioxide 26 mmol/L (22-30); Chloride 104 mmol/L (98-107); Estimated CRCL calculation 65 ml/min; Estimated Glomerular Filt Rate > 60; Potassium 4.2 mmol/L (3.4-5.0); Sodium 140 mmol/L (137-145); Total Protein 8.2 g/dL (6.3-8.2)
[2025-06-19 01:40] LABS: Calcium 10.2 mg/dL (8.4-10.2); Glucose 103 mg/dL (65-110); Osmolality Calculated 291 mOsm/kg (285-295)
[2025-06-19 01:59] VITALS: BMI 23.6
[2025-06-19 02:00] VITALS: BP 145/64; PULSE 94; RESP 20; TEMP 37; O2SAT 93
[2025-06-19] MEDS: SODIUM CHLORIDE 0.9% IV 1,000 ML 100 ML IV CONT ×2 (02:12→14:57)
[2025-06-19] MEDS: VANCOMYCIN 1,250 MG/NS 250 ML 1,250 MG/250 ML BAG 166.67 MG IVPB ×2 (02:44→20:44)
--- NOTE | 2025-06-19 02:48 | ADMGEN ---
This patient, Keena Johnson, was admitted to 2nd Floor Room 209-1. Patient/family oriented to hospital policies and general routines including ID bracelet, bed and alarms, visiting hours, pain management, procedures, bathroom and other care routines, personal items, smoking policy, room service/diet, and visiting hours. Information on how to activate the Rapid Response Team has been discussed. Patient/Family are encouraged to report perceived risks to care and to ask questions if they do not understand what they are told or what they should do.
[2025-06-19] MEDS: ACETAMINOPHEN 325 MG TABLET 650 MG PO ×3 (03:48→21:33)
[2025-06-19 05:56] LABS: Hematocrit 37.4 % (35.0-49.0); Hemoglobin 12.0 g/dL (12.0-15.0); Immature Granulocyte Percent A 0.3 % (0.0-0.0); Lymphocytes Absolute Auto 2.73 K/mm3 (1.10-4.50); Mean Corpuscular HGB Conc 32.1 g/dL (32-36); Mean Corpuscular Hemoglobin 31.3 pg (27.0-31.0); Mean Corpuscular Volume 97.7 fL (78.0-102.0); Nucleated Red Blood Cells Absolute Auto 0.00 K/mm3 (0.00-0.00); Nucleated Red Blood Cells Perc 0.0 % (0-0.0); Platelet Count Result 398 K/mm3 (150-420); Red Blood Count 3.83 M/mm3 (4.20-5.40); White Blood Count 7.9 K/mm3 (4.8-10.8)
[2025-06-19 06:00] LABS: Alanine Aminotransferase 57 U/L (6-35); Albumin Level 4.2 g/dL (3.5-5.1); Alkaline Phosphatase 58 U/L (38-126); Anion Gap 8 mmol/L (4-12); Aspartate Amino Transferase 54 U/L (14-36); Bilirubin,Total 0.3 mg/dL (0.2-1.3); Blood Urea Nitrogen 12 mg/dL (7-17); Calcium 9.3 mg/dL (8.4-10.2); Carbon Dioxide 29 mmol/L (22-30); Chloride 104 mmol/L (98-107); Estimated CRCL calculation 72 ml/min; Estimated Glomerular Filt Rate > 60; Glucose 98 mg/dL (65-110); Osmolality Calculated 291 mOsm/kg (285-295); Potassium 4.1 mmol/L (3.4-5.0); Sodium 141 mmol/L (137-145); Total Protein 7.1 g/dL (6.3-8.2)
[2025-06-19 08:00] VITALS: BP 132/64; PULSE 83; RESP 16; TEMP 36.9; O2SAT 92
[2025-06-19] MEDS: ENOXAPARIN 40 MG/0.4 ML SYRINGE SUB-Q (08:34)
--- NOTE | 2025-06-19 10:42 | P.PNIM_ITS ---
Progress Note: A&P Assessment and Plan (1) Cellulitis: Code(s): L03.90 - Cellulitis, unspecified Status: Acute Assessment and Plan: Patient with right foot cellulitis secondary to removal of ingrown toenail on the right great toe. Does not meet sepsis criteria. Normal WBC. x-ray of foot without osteomyelitis but mild swelling. * Wound culture obtained * IV antibiotics with ceftriaxone and vancomycin * Blood cultures pending * Pain management with acetaminophen, Lorton, and hydromorphone * Elevate extremity * Activity as tolerated (2) Peripheral vascular disease with claudication: Code(s): I73.9 - Peripheral vascular disease, unspecified Status: Acute Assessment and Plan: Known peripheral arterial disease. Patient has plan peripheral arterial bypass scheduled for 06/30/2025. * Resume home aspirin and statin * Elevate extremity * Activity as tolerated * Right pedal and post tibial pulses 1+, monitor for signs and symptoms of claudication (3) Nicotine dependence, unspecified, uncomplicated: Code(s): F17.200 - Nicotine dependence, unspecified, uncomplicated Status: Acute Assessment and Plan: Patient states she is attempting to quit smoking. * Nicotine patch offered however patient declined * Smoking cessation education provided Plan Code status: Full code per patient DVT prophylaxis: Lovenox Stress ulcer prophylaxis: NA PT/OT notes: ambulatory Disposition: patient was admitted observation to medical unit will continue with IV antibiotics hopefully symptoms will improve and she can be transitioned to oral antibiotics. she is ambulatory on own and likely discharged home when medically stable. Time Spent With Patient Time with patient: 15 - 25 minutes Subjective Date/time seen: 06/19/25 10:42 Interval history: This 59-year-old female presented to the hospital yesterday evening with complaints of pain, swelling, and redness in her right lower extremity after recently having an ingrown toenail removed on 06/15/2025 by her data consultant. patient reports past medical history of HLD, nicotine dependency, and PAD. patient reported about 2 weeks prior she had seen her primary care physician regarding painful infection to her toe which time patient was given 10 days of clindamycin however once patient had completed her antibiotic course pain swelling had returned. Patient is scheduled for arterial bypass of the right lower extremity due to severe PAD in 14 days. patient states she followed up with her data consultant due to worsening pain and swelling with erythema to the right foot at which time data consultant had removed an ingrown toenail she then developed a open wound with drainage and came to the emergency department for further evaluation. patient had denied any chest pain, shortness a breath, dizziness, nausea, vomiting, abdominal pain, fever or chills. patient reports she has attempted to keep her foot elevated at home however continues to have severe swelling and pain. In the ED: patient's labs reviewed all within normal limits no leukocytosis noted and CRP was normal. foot x-ray showing no osteomyelitis with mild swelling. patient received IV Rocephin and vancomycin and IV analgesics and was determined have cellulitis of the right great toe. Patient was admitted to the hospital for further evaluation and management of her cellulitis. Patient is seen and assessed following day examination this morning patient continues to complain of pain in the right great toe. Right great toe continues to appear red, swollen, with scant purulent drainage. Wound culture obtained. Patient on acetaminophen and hydromorphone would has no coverage for moderate pain control. Will add hydrocodone for better coverage. Patient denies chest pain, shortness a breath, abdominal pain. Patient is tolerating oral intake. Patient does report continued moderate to severe pain worse with ambulation. Review of Systems Review of Systems: All systems reviewed & are unremarkable except as noted in HPI and below Constitutional: Constitutional: Reports no additional constitutional complaints Eyes: Eyes: Reports no additional eye complaints ENT: Reports system reviewed and no additional complaints, except as documented Cardiovascular: Cardiovascular: Reports pedal edema (right foot) Respiratory: Respiratory: Reports no additional respiratory complaints Gastrointestinal: Gastrointestinal: Reports no additional gastrointestinal complaints Genitourinary: Genitourinary: Reports no additional female genitourinary complaints Musculoskeletal: Musculoskeletal: Reports no additional musculoskeletal complaints Integumentary/Breasts: Skin/Breast: Reports erythema (Right foot) Neurologic: Reports system reviewed and no additional complaints, except as documented Psychiatric: Psychiatric: Reports no additional psychiatric complaints Exam Const: General: comfortable HENMT: Ears: TM's normal bilaterally Face/Nose/Sinus: Normal nares present Mouth: Yes moist mucous membranes Eyes: General: appearance normal, both eyes and all related structures Sclera: sclerae normal Pupils: Equal, round and reactive pupils present EOM: EOMs intact bilaterally Neck: Neck: supple and no JVD Resp: Effort & Inspection: normal respiratory effort Auscultation: clear to auscultation bilaterally Cardio: Rate: regular rate Rhythm: regular rhythm Other: Weak right pedal and posterior tibial pulses. RLE cool to touch. GI: GI Palp: Yes Soft to palpation Auscultation: normal bowel sounds : External Female Exam: normal external appearance Skin: General skin exam: normal color Wounds: wounds noted (Healing wounds, scabbed, on the plantar and dorsal surface of right foot. ) Other: Cellulitis right great toe. Neuro: General: gait normal Speech: normal speech Motor exam (neuro): 5/5 motor strength present throughout Sensory Exam: normal sensation Extrem: General: normal to inspection Psych: Mental Status: mental status grossly normal Objective Data Vital Signs Vital Signs: Vital Signs - 24 hr 06/19/25 00:00 06/19/25 02:00 06/19/25 08:00 Temperature 99.0 F 98.6 F 98.5 F Pulse Rate 107 H 94 83 Respiratory Rate 18 20 16 Blood Pressure 161/93 H 145/64 H 132/64 Pulse Oximetry 96 93 92 Oxygen Delivery Room Air Room Air Room Air Intake/Output Intake/Output: Intake & Output 06/16/25 06/17/25 06/18/25 06/19/25 23:59 23:59 23:59 23:59 Intake Total 850 Balance 850 Meds/Results Medications: Active Medications Generic Name Dose Route Start Last Admin Trade Name Freq PRN Reason Stop Dose Admin Acetaminophen 650 mg 06/19/25 01:49 06/19/25 10:18 Acetaminophen 325 Mg Tablet PO 650 mg Q4H PRN Administration Mild Pain (1-3) or Fever Hydrocodone Bitart/Acetaminophen 1 tab 06/19/25 10:22 Hydrocodone/Acetaminophen (*Crx) 5-325 Mg Tablet PO Q4H PRN Pain Rated 4-6 Atorvastatin Calcium 40 mg 06/20/25 09:00 Atorvastatin 40 Mg Tablet PO DAILY [facility] Cilostazol 100 mg 06/19/25 17:00 Cilostazol 100 Mg Tablet PO BID MARTHA Enoxaparin Sodium 40 mg 06/19/25 09:00 06/19/25 08:34 Enoxaparin 40 Mg/0.4 Ml Syringe SUB-Q 40 mg DAILY MARTHA Administration Hydromorphone HCl 0.5 mg 06/19/25 02:04 06/19/25 06:03 Hydromorphone Hcl Inj (*Crx) 2 Mg/Ml Vial IV PUSH 0.5 mg Q8H PRN Administration Pain 7-10 Sodium Chloride 1,000 mls @ 100 mls/hr 06/19/25 01:50 06/19/25 02:12 Normal Saline Iv IV CONT 100 mls/hr .Q10H MARTHA Administration Ceftriaxone Sodium 1 gm/ 50 mls @ 100 mls/hr 06/19/25 12:00 Sodium Chloride IVPB Q12H MARTHA Vancomycin HCl 1,250 mg in 250 mls @ 166.667 mls/hr 06/19/25 03:00 06/19/25 04:20 Vancomycin 1,250 Mg/Ns 250 Ml IVPB Infused Q18H MARTHA Infusion Naloxone HCl 0.1 mg 06/19/25 01:49 Naloxone Hcl 0.4 Mg/Ml Vial IV PUSH Q2M PRN Opiate Reversal Non-Formulary Medication 81 mg 06/20/25 09:00 Aspirin PO 07/20/25 08:59 DAILY MARTHA Non-Formulary Medication 50 mg 06/19/25 17:00 Diclofenac Potassium PO 07/19/25 16:59 BID MARTHA Ondansetron HCl 4 mg 06/19/25 01:49 Ondansetron Inj 4 Mg/2 Ml Vial IV PUSH Q6H PRN Nausea And Vomiting Labs Labs: Laboratory Results - last 24 hr 06/19/25 06/19/25 01:11 05:25 WBC 9.8 7.9 RBC 3.96 L 3.83 L Hgb 12.3 12.0 Hct 38.2 37.4 MCV 96.5 97.7 MCH 31.1 H 31.3 H MCHC 32.2 32.1 RDW 14.2 14.2 Plt Count 430 H 398 MPV 9.4 9.4 Immature Gran % (Auto) 0.3 H 0.3 H Neut % (Auto) 62.5 54.6 Lymph % (Auto) 26.5 34.5 [place] % (Auto) 6.6 6.1 Eos % (Auto) 3.5 3.9 Baso % (Auto) 0.6 0.6 Lymph # (Auto) 2.60 2.73 [place] # (Auto) 0.65 0.48 Eos # (Auto) 0.34 0.31 Baso # (Auto) 0.06 0.05 Abs Immat Gran (auto) 0.03 H 0.02 H Absolute Neuts (auto) 6.12 4.32 Absolute Nucleated RBC 0.00 0.00 Nucleated RBC % 0.0 0.0 Sodium 140 141 Potassium 4.2 4.1 Chloride 104 104 Carbon Dioxide 26 29 Anion Gap 10 8 BUN 17 12 D Creatinine 0.69 L 0.62 L Estim Creat Clear Calc 65 72 Estimated GFR > 60 > 60 Glucose 103 98 Calculated Osmolality 291 291 Lactic Acid 0.7 Calcium 10.2 9.3 Total Bilirubin 0.3 0.3 AST 55 H 54 H ALT 60 H 57 H Alkaline Phosphatase 70 58 C-Reactive Protein < 0.5 Total Protein 8.2 7.1 Albumin 4.8 4.2 Quality VTE Prophylaxis VTE prophylaxis: pharmacologic ordered -Patient's previous records reviewed on admission -ER notes reviewed in detail on admission -discussed all findings and current treatment plan with patient -Consultations reviewed for recommendations -Patient's disposition for safe discharge discussed with shoe caser Dictation performed by [employer] direct speech recognition software, therefore manufacturing electrician variants and typographical errors may occur. Hospitalist MIPS Advance Care Plan I have confirmed that the patient's Advanced Care Plan is present, code status is documented, or surrogate decision maker is listed in patient medical record.: Yes Medication Reconciliation I have utilized all available resources to obtain, update and review the patients current medications (includes all prescriptions, OTC, herbals, cannabis, and nutritional supplements).: Yes The patient is not eligible for med reconciliation; the patient is in a emergent medical situation where delaying treatment would jeopardize the patients health.: No
--- NOTE | 2025-06-19 11:42 | P.HP_ITS ---
H&P: HPI History of Present Illness Date/Time: 06/19/25 11:42 Chief Complaint: Right foot pain and swelling Narrative: This 59-year-old female presented to the hospital yesterday evening with complaints of pain, swelling, and redness in her right lower extremity after recently having an ingrown toenail removed on 06/15/2025 by her mirror installer. patient reports past medical history of HLD, nicotine dependency, and PAD. patient reported about 2 weeks prior she had seen her primary care physician regarding painful infection to her toe which time patient was given 10 days of clindamycin however once patient had completed her antibiotic course pain swelling had returned. Patient is scheduled for arterial bypass of the right lower extremity due to severe PAD in 14 days. patient states she followed up with her mirror installer due to worsening pain and swelling with erythema to the right foot at which time mirror installer had removed an ingrown toenail she then developed a open wound with drainage and came to the emergency department for further evaluation. patient had denied any chest pain, shortness a breath, dizziness, nausea, vomiting, abdominal pain, fever or chills. patient reports she has attempted to keep her foot elevated at home however continues to have severe swelling and pain. In the ED: patient's labs reviewed all within normal limits no leukocytosis noted and CRP was normal. foot x-ray showing no osteomyelitis with mild swelling. patient received IV Rocephin and vancomycin and IV analgesics and was determined have cellulitis of the right great toe. Patient was admitted to the hospital for further evaluation and management of her cellulitis. Patient is seen and assessed following day examination this morning patient continues to complain of pain in the right great toe. Right great toe continues to appear red, swollen, with scant purulent drainage. Wound culture obtained. Patient on acetaminophen and hydromorphone would has no coverage for moderate pain control. Will add hydrocodone for better coverage. Patient denies chest pain, shortness a breath, abdominal pain. Patient is tolerating oral intake. Patient does report continued moderate to severe pain worse with ambulation. Review of Systems Review of Systems: All systems reviewed & are unremarkable except as noted in HPI and below Constitutional: Constitutional: Reports no additional constitutional complaints Eyes: Eyes: Reports no additional eye complaints ENT: Reports system reviewed and no additional complaints, except as documented Cardiovascular: Cardiovascular: Reports pedal edema (right foot) and Reports other (Weak right pedal and post tibial pulse. RLE cool to touch. ) Respiratory: Respiratory: Reports no additional respiratory complaints Gastrointestinal: Gastrointestinal: Reports no additional gastrointestinal complaints Genitourinary: Genitourinary: Reports no additional female genitourinary complaints Musculoskeletal: Musculoskeletal: Reports no additional musculoskeletal complaints Integumentary/Breasts: Skin/Breast: Reports erythema (Right foot) Neurologic: Reports system reviewed and no additional complaints, except as documented Psychiatric: Psychiatric: Reports no additional psychiatric complaints PMFSH Past Medical History Medical History Hyperlipidemia (03/19/17) Nicotine dependence, unspecified, uncomplicated Surgical History Surgical History History of appendectomy Family History Family History (Updated 06/19/25 @ 02:28 by Violetta Caputo RN) Other Unknown family medical history Social History Social History Smoking status: Current some day smoker Tobacco type: cigarettes Alcohol intake: never Substance use: never Substance use type: does not use Lack of Transportation: No Lack of Food: Never True Current Housing: I Have Housing Concerned About Future Housing: No Difficulty Paying Gas/Electric Bills: No Difficulty Paying for Meds: No Currently Unemployed: No Education: High School Diploma/GED Difficulty w/ Childcare or Family Care: No Living arrangements: with family Occupation/Education: occupation 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 Spiritual care concerns: No Meds Home Medications and Allergies Home Medications ?Medication ?Instructions ?Recorded ?Confirmed ?Type aspirin 81 mg tablet 81 mg PO DAILY #30 tabs /06/19/25 Rx acetaminophen 500 mg tablet 500 mg PO Q6H PRN pain 10/1406/19/25 History (Tylenol Extra Strength) atorvastatin 40 mg tablet (Lipitor) 40 mg PO DAILY #90 tabs 06/01/25 06/19/25 Rx cilostazol 100 mg tablet 100 mg PO BID #60 tabs 06/0106/19/25 Rx diclofenac potassium 50 mg tablet 50 mg PO BID #60 tab s 06/01/25 06/19/25 Rx Allergies Allergy/AdvReac Type Severity Reaction Status Date / Time azithromycin (Zithromax Allergy Intermediate Unknown Verified 06/19/25 00:09 Z-Lenny) erythromycin base Allergy Intermediate Unknown Verified 06/19/25 00:09 zinc oxide (Z-Bum) Allergy Intermediate Unknown Verified 06/19/25 00:09 Vital Signs Vital Signs - 24 hr 06/19/25 00:00 06/19/25 02:00 06/19/25 08:00 Temperature 99.0 F 98.6 F 98.5 F Pulse Rate 107 H 94 83 Respiratory Rate 18 20 16 Blood Pressure 161/93 H 145/64 H 132/64 Pulse Oximetry 96 93 92 Oxygen Delivery Room Air Room Air Room Air Exam Const: General: comfortable HENMT: Ears: TM's normal bilaterally Face/Nose/Sinus: Normal nares present Mouth: Yes moist mucous membranes Eyes: General: appearance normal, both eyes and all related structures Sclera: sclerae normal Pupils: Equal, round and reactive pupils present EOM: EOMs intact bilaterally Neck: Neck: supple and no JVD Resp: Effort & Inspection: normal respiratory effort Auscultation: clear to auscultation bilaterally Cardio: Rate: regular rate Rhythm: regular rhythm Other: Weak right pedal and posterior tibial pulses. RLE cool to touch. GI: Auscultation: normal bowel sounds : External Female Exam: normal external appearance Skin: General skin exam: normal color and wounds noted (Healing wounds, scabbed, on the plantar and dorsal surface of right foot. ) Wounds: wounds noted (Healing wounds, scabbed, on the plantar and dorsal surface of right foot. ) Other: Cellulitis right great toe. Neuro: General: gait normal Cranial nerves: Yes Equal, round and reactive pupils present Speech: normal speech Motor exam (neuro): 5/5 motor strength present throughout Sensory Exam: normal sensation Extrem: General: normal to inspection Psych: Mental Status: mental status grossly normal H&P: Results Labs Labs: Short CBC 06/19/25 06/19/25 Range/Units 01:11 05:25 WBC 9.8 7.9 (4.8-10.8) K/mm3 Hgb 12.3 12.0 (12.0-15.0) g/dL Hct 38.2 37.4 (35.0-49.0) % Plt Count 430 H 398 (150-420) K/mm3 BMP 06/19/25 06/19/25 01:11 05:25 Sodium 140 141 Potassium 4.2 4.1 Chloride 104 104 Carbon Dioxide 26 29 BUN 17 12 D Creatinine 0.69 L 0.62 L Glucose 103 98 Calcium 10.2 9.3 Liver Function 06/19/25 06/19/25 Range/Units 01:11 05:25 Total Bilirubin 0.3 0.3 (0.2-1.3) mg/dL AST 55 H 54 H (14-36) U/L ALT 60 H 57 H (6-35) U/L Alkaline Phosphatase 70 58 (38-126) U/L Albumin 4.8 4.2 (3.5-5.1) g/dL Assessment and Plan Assessment and plan (1) Cellulitis: Code(s): L03.90 - Cellulitis, unspecified Status: Acute Assessment and Plan: Patient with right foot cellulitis secondary to removal of ingrown toenail on the right great toe. Does not meet sepsis criteria. Normal WBC. x-ray of foot without osteomyelitis but mild swelling. * Wound culture obtained * IV antibiotics with ceftriaxone and vancomycin * Blood cultures pending * Pain management with acetaminophen, [place], and hydromorphone * Elevate extremity * Activity as tolerated (2) Peripheral vascular disease with claudication: Code(s): I73.9 - Peripheral vascular disease, unspecified Status: Acute Assessment and Plan: Known peripheral arterial disease. Patient has plan peripheral arterial bypass scheduled for 06/30/2025. * Resume home aspirin and statin * Elevate extremity * Activity as tolerated * Right pedal and post tibial pulses 1+, monitor for signs and symptoms of claudication (3) Nicotine dependence, unspecified, uncomplicated: Code(s): F17.200 - Nicotine dependence, unspecified, uncomplicated Status: Acute Assessment and Plan: Patient states she is attempting to quit smoking. * Nicotine patch offered however patient declined * Smoking cessation education provided Plan Code status: Full code per patient DVT prophylaxis: Lovenox Stress ulcer prophylaxis: NA PT/OT notes: ambulatory Disposition: patient was admitted observation to medical unit will continue with IV antibiotics hopefully symptoms will improve and she can be transitioned to oral antibiotics. she is ambulatory on own and likely discharged home when medically stable. Quality VTE Prophylaxis VTE prophylaxis: pharmacologic ordered -Patient's previous records reviewed on admission -ER notes reviewed in detail on admission -discussed all findings and current treatment plan with patient/Family/POA -Consultations reviewed for recommendations -Patient's disposition for safe discharge discussed with binder caser Dictation performed by [email or web address] direct speech recognition software, therefore pv installer tech variants and typographical errors may occur. Hospitalist MIPS Advance Care Plan I have confirmed that the patient's Advanced Care Plan is present, code status is documented, or surrogate decision maker is listed in patient medical record.: Yes Medication Reconciliation I have utilized all available resources to obtain, update and review the patients current medications (includes all prescriptions, OTC, herbals, cannabis, and nutritional supplements).: Yes The patient is not eligible for med reconciliation; the patient is in a emergent medical situation where delaying treatment would jeopardize the patients health.: No
[2025-06-19] MEDS: ASPIRIN 81 MG ENTERIC TABLET PO (12:14)
[2025-06-19] MEDS: ATORVASTATIN 40 MG TABLET PO (12:14)
[2025-06-19] MEDS: DICLOFENAC SOD 75 MG TABLET.EC PO ×2 (12:23→17:16)
[2025-06-19] MEDS: HYDROmorphone HCL INJ (*CRX) 2 MG/ML VIAL 1 MG IV PUSH ×2 (15:00→23:04)
[2025-06-19 16:00] VITALS: BP 109/49; PULSE 92; RESP 16; TEMP 37.4; O2SAT 92
[2025-06-19] MEDS: HYDROcodone/acetaminophen (*CRX) 5-325 MG TABLET 1 TAB PO ×2 (19:07→21:49)
[2025-06-19 20:00] VITALS: PULSE 91; RESP 16; O2SAT 94
[2025-06-19] MEDS: cefTRIAXone 1 GM in SODIUM CHLORIDE 0.9% IV 50 ML IVPB (23:05)
[2025-06-20] VITALS: BP 121/52; PULSE 88; RESP 16; TEMP 36.7; O2SAT 94
[2025-06-20] MEDS: HYDROmorphone HCL INJ (*CRX) 2 MG/ML VIAL 1 MG IV PUSH ×4 (04:16→20:08)
[2025-06-20] MEDS: SODIUM CHLORIDE 0.9% IV 1,000 ML 100 ML IV CONT ×2 (04:17→14:09)
[2025-06-20 06:18] LABS: Hematocrit 33.1 % (35.0-49.0); Hemoglobin 10.4 g/dL (12.0-15.0); Mean Corpuscular HGB Conc 31.4 g/dL (32-36); Mean Corpuscular Hemoglobin 30.8 pg (27.0-31.0); Mean Corpuscular Volume 97.9 fL (78.0-102.0); Platelet Count Result 350 K/mm3 (150-420); Red Blood Count 3.38 M/mm3 (4.20-5.40); White Blood Count 6.9 K/mm3 (4.8-10.8)
[2025-06-20 06:31] LABS: Alanine Aminotransferase 46 U/L (6-35); Albumin Level 3.7 g/dL (3.5-5.1); Alkaline Phosphatase 58 U/L (38-126); Anion Gap 7 mmol/L (4-12); Aspartate Amino Transferase 38 U/L (14-36); Bilirubin,Total 0.3 mg/dL (0.2-1.3); Blood Urea Nitrogen 9 mg/dL (7-17); Calcium 8.9 mg/dL (8.4-10.2); Carbon Dioxide 29 mmol/L (22-30); Chloride 105 mmol/L (98-107); Estimated CRCL calculation 71 ml/min; Estimated Glomerular Filt Rate > 60; Glucose 92 mg/dL (65-110); Magnesium 2.1 mg/dL (1.6-2.3); Osmolality Calculated 290 mOsm/kg (285-295); Potassium 4.2 mmol/L (3.4-5.0); Sodium 141 mmol/L (137-145); Total Protein 6.4 g/dL (6.3-8.2)
[2025-06-20 08:00] VITALS: BP 157/75; PULSE 71; RESP 16; TEMP 36.9; O2SAT 94
[2025-06-20] MEDS: ENOXAPARIN 40 MG/0.4 ML SYRINGE SUB-Q (08:43)
[2025-06-20] MEDS: DICLOFENAC SOD 75 MG TABLET.EC PO ×2 (08:44→17:29)
[2025-06-20] MEDS: ASPIRIN 81 MG ENTERIC TABLET PO (08:44)
[2025-06-20] MEDS: ATORVASTATIN 40 MG TABLET PO (08:44)
--- NOTE | 2025-06-20 09:59 | P.PNIM_ITS ---
Progress Note: A&P Assessment and Plan (1) Cellulitis: Code(s): L03.90 - Cellulitis, unspecified Status: Acute Assessment and Plan: Patient with right foot cellulitis secondary to removal of ingrown toenail on the right great toe. Does not meet sepsis criteria. Normal WBC. x-ray of foot without osteomyelitis but mild swelling. * Wound culture pending * IV antibiotics with ceftriaxone and vancomycin * Blood cultures pending * Pain management with acetaminophen, [place], and hydromorphone * Elevate extremity * Activity as tolerated (2) Peripheral vascular disease with claudication: Code(s): I73.9 - Peripheral vascular disease, unspecified Status: Acute Assessment and Plan: Known peripheral arterial disease. Patient has plan peripheral arterial bypass scheduled for 06/30/2025. * Resume home aspirin and statin * Elevate extremity * Activity as tolerated * Right pedal and post tibial pulses 1+, monitor for signs and symptoms of claudication (3) Nicotine dependence, unspecified, uncomplicated: Code(s): F17.200 - Nicotine dependence, unspecified, uncomplicated Status: Acute Assessment and Plan: Patient states she is attempting to quit smoking. * Nicotine patch offered however patient declined * Smoking cessation education provided Plan Code status: Full code per patient DVT prophylaxis: Lovenox Stress ulcer prophylaxis: NA PT/OT notes: ambulatory Disposition: patient was admitted observation to medical unit will continue with IV antibiotics hopefully symptoms will improve and she can be transitioned to oral antibiotics. she is ambulatory on own and likely discharged home when medically stable. Time Spent With Patient Time with patient: 15 - 25 minutes Subjective Date/time seen: 06/20/25 09:59 Interval history: This 59-year-old female presented to the hospital yesterday evening with complaints of pain, swelling, and redness in her right lower extremity after recently having an ingrown toenail removed on 06/15/2025 by her upstream biomanufacturing technician. patient reports past medical history of HLD, nicotine dependency, and PAD. patient reported about 2 weeks prior she had seen her primary care physician regarding painful infection to her toe which time patient was given 10 days of clindamycin however once patient had completed her antibiotic course pain swelling had returned. Patient is scheduled for arterial bypass of the right lower extremity due to severe PAD in 14 days. patient states she followed up with her upstream biomanufacturing technician due to worsening pain and swelling with erythema to the right foot at which time upstream biomanufacturing technician had removed an ingrown toenail she then developed a open wound with drainage and came to the emergency department for further evaluation. Admitted for treatment of cellulitis 06/20/2025: Patient still reporting moderate pain with intermittent severe pain. still with [id number] swelling localized erythema however wound improved no current drainage. patient overall reports she does not feel ill and denied any fevers chills overnight. Review of Systems Review of Systems: All systems reviewed & are unremarkable except as noted in HPI and below Exam Const: General: no acute distress HENMT: Mouth: Yes moist mucous membranes Eyes: General: appearance normal, both eyes and all related structures Neck: Neck: supple Resp: Effort & Inspection: normal respiratory effort Auscultation: clear to auscultation bilaterally Cardio: Rate: regular rate Rhythm: regular rhythm Other: Weak right pedal and posterior tibial pulses. RLE cool to touch. GI: GI Palp: Yes Soft to palpation Auscultation: normal bowel sounds Skin: Other: General skin exam: normal color and wounds noted (Healing wounds, scabbed, on the plantar and dorsal surface of right foot. ) Wounds: wounds noted (Healing wounds, scabbed, on the plantar and dorsal surface of right foot. ) Other: Cellulitis right great toe. Neuro: General: gait normal Speech: normal speech Motor exam (neuro): 5/5 motor strength present throughout Sensory Exam: normal sensation Extrem: General: pedal edema on the right Psych: Mental Status: mental status grossly normal Affect: normal affect Objective Data Vital Signs Vital Signs: Vital Signs - 24 hr 06/19/25 16:00 06/19/25 20:00 06/20/25 00:00 Temperature 99.4 F 98.1 F Pulse Rate 92 91 88 Respiratory Rate 16 16 16 Blood Pressure 109/49 L 121/52 L Pulse Oximetry 92 94 94 Oxygen Delivery Room Air Room Air Room Air 06/20/25 08:00 Temperature 98.5 F Pulse Rate 71 Respiratory Rate 16 Blood Pressure 157/75 H Pulse Oximetry 94 Oxygen Delivery Room Air Intake/Output Intake/Output: Intake & Output 06/17/25 06/18/25 06/19/25 06/20/25 23:59 23:59 23:59 23:59 Intake Total 3190 1900 Balance 3190 1900 Meds/Results Medications: Active Medications Generic Name Dose Route Start Last Admin Trade Name Freq PRN Reason Stop Dose Admin Acetaminophen 650 mg 06/19/25 01:49 06/19/25 21:33 Acetaminophen 325 Mg Tablet PO 650 mg Q4H PRN Administration Mild Pain (1-3) or Fever Hydrocodone Bitart/Acetaminophen 1 tab 06/19/25 10:22 06/19/25 21:49 Hydrocodone/Acetaminophen (*Crx) 5-325 Mg Tablet PO 1 tab Q4H PRN Administration Pain Rated 4-6 Aspirin 81 mg 06/19/25 11:00 06/20/25 08:44 Aspirin 81 Mg Enteric Tablet PO 07/20/25 10:59 81 mg DAILY MARTHA Administration Atorvastatin Calcium 40 mg 06/19/25 11:00 06/20/25 08:44 Atorvastatin 40 Mg Tablet PO 40 mg DAILY MARTHA Administration Cilostazol 100 mg 06/19/25 11:00 06/20/25 08:44 Cilostazol 100 Mg Tablet PO 100 mg BIDWM MARTHA Administration Diclofenac Sodium 75 mg 06/19/25 12:10 06/20/25 08:44 Diclofenac Sod 75 Mg Tablet.Ec PO 75 mg BIDWM MARTHA Administration Enoxaparin Sodium 40 mg 06/19/25 09:00 06/20/25 08:43 Enoxaparin 40 Mg/0.4 Ml Syringe SUB-Q 40 mg DAILY MARTHA Administration Hydromorphone HCl 1 mg 06/19/25 21:52 06/20/25 08:40 Hydromorphone Hcl Inj (*Crx) 2 Mg/Ml Vial IV PUSH 1 mg Q4HR PRN Administration Pain 7-10 Sodium Chloride 1,000 mls @ 100 mls/hr 06/19/25 01:50 06/20/25 04:17 Normal Saline Iv IV CONT 100 mls/hr .Q10H MARTHA Administration Ceftriaxone Sodium 1 gm/ 50 mls @ 100 mls/hr 06/19/25 12:00 06/20/25 00:05 Sodium Chloride IVPB Infused Q12H MARTHA Infusion Vancomycin HCl 1,250 mg in 250 mls @ 166.667 mls/hr 06/19/25 03:00 06/19/25 22:14 Vancomycin 1,250 Mg/Ns 250 Ml IVPB Infused Q18H MARTHA Infusion Naloxone HCl 0.1 mg 06/19/25 01:49 Naloxone Hcl 0.4 Mg/Ml Vial IV PUSH Q2M PRN Opiate Reversal Ondansetron HCl 4 mg 06/19/25 01:49 Ondansetron Inj 4 Mg/2 Ml Vial IV PUSH Q6H PRN Nausea And Vomiting Radiology Results: ITS Impressions Foot X-Ray 06/19/25 11:30 Impression: No acute fracture or malalignment. Labs Labs: Laboratory Results - last 24 hr 06/20/25 05:22 WBC 6.9 RBC 3.38 L Hgb 10.4 L Hct 33.1 L MCV 97.9 MCH 30.8 MCHC 31.4 L RDW 14.1 Plt Count 350 MPV 9.7 Sodium 141 Potassium 4.2 Chloride 105 Carbon Dioxide 29 Anion Gap 7 BUN 9 Creatinine 0.63 L Estim Creat Clear Calc 71 Estimated GFR > 60 Glucose 92 Calculated Osmolality 290 Calcium 8.9 Magnesium 2.1 Total Bilirubin 0.3 AST 38 H ALT 46 H Alkaline Phosphatase 58 Total Protein 6.4 Albumin 3.7 Quality VTE Prophylaxis VTE prophylaxis: pharmacologic ordered -Patient's previous records reviewed on admission -ER notes reviewed in detail on admission -discussed all findings and current treatment plan with patient/Family/POA -Consultations reviewed for recommendations -Patient's disposition for safe discharge discussed with case management director Dictation performed by [employer] direct speech recognition software, therefore residence leasing agent variants and typographical errors may occur. Hospitalist MIPS Advance Care Plan I have confirmed that the patient's Advanced Care Plan is present, code status is documented, or surrogate decision maker is listed in patient medical record.: Yes Medication Reconciliation I have utilized all available resources to obtain, update and review the patients current medications (includes all prescriptions, OTC, herbals, cannabis, and nutritional supplements).: Yes The patient is not eligible for med reconciliation; the patient is in a emergent medical situation where delaying treatment would jeopardize the patients health.: No
[2025-06-20] MEDS: cefTRIAXone 1 GM in SODIUM CHLORIDE 0.9% IV 50 ML 100 ML IVPB ×2 (11:14→23:46)
[2025-06-20] MEDS: HYDROcodone/acetaminophen (*CRX) 5-325 MG TABLET 1 TAB PO ×3 (11:14→23:46)
--- NOTE | 2025-06-20 14:00 | PC.NURSE ---
status change to ip @ 1400
[2025-06-20] MEDS: VANCOMYCIN 1,250 MG/NS 250 ML 1,250 MG/250 ML BAG 166.67 MG IVPB (14:10)
[2025-06-20 16:00] VITALS: BP 123/54; PULSE 79; RESP 16; TEMP 37.1; O2SAT 94
[2025-06-20 20:00] VITALS: PULSE 85; RESP 16; O2SAT 94
[2025-06-21] VITALS: BP 114/61; PULSE 85; RESP 16; TEMP 36.8; O2SAT 94
[2025-06-21] MEDS: HYDROmorphone HCL INJ (*CRX) 2 MG/ML VIAL 1 MG IV PUSH ×3 (03:03→20:54)
[2025-06-21] MEDS: SODIUM CHLORIDE 0.9% IV 1,000 ML 100 ML IV CONT (03:07)
[2025-06-21 05:33] LABS: Hematocrit 29.5 % (35.0-49.0); Hemoglobin 9.7 g/dL (12.0-15.0); Mean Corpuscular HGB Conc 32.9 g/dL (32-36); Mean Corpuscular Hemoglobin 32.0 pg (27.0-31.0); Mean Corpuscular Volume 97.4 fL (78.0-102.0); Platelet Count Result 311 K/mm3 (150-420); Red Blood Count 3.03 M/mm3 (4.20-5.40); White Blood Count 10.1 K/mm3 (4.8-10.8)
[2025-06-21 05:39] LABS: Alanine Aminotransferase 39 U/L (6-35); Albumin Level 3.4 g/dL (3.5-5.1); Alkaline Phosphatase 57 U/L (38-126); Anion Gap 5 mmol/L (4-12); Aspartate Amino Transferase 38 U/L (14-36); Bilirubin,Total 0.3 mg/dL (0.2-1.3); Blood Urea Nitrogen 11 mg/dL (7-17); Calcium 8.8 mg/dL (8.4-10.2); Carbon Dioxide 28 mmol/L (22-30); Chloride 107 mmol/L (98-107); Estimated CRCL calculation 79 ml/min; Estimated Glomerular Filt Rate > 60; Glucose 96 mg/dL (65-110); Magnesium 2.1 mg/dL (1.6-2.3); Osmolality Calculated 289 mOsm/kg (285-295); Potassium 4.3 mmol/L (3.4-5.0); Sodium 140 mmol/L (137-145); Total Protein 5.9 g/dL (6.3-8.2)
[2025-06-21 08:00] VITALS: BP 117/61; PULSE 86; RESP 16; TEMP 37; O2SAT 92
[2025-06-21] MEDS: VANCOMYCIN 1,250 MG/NS 250 ML 1,250 MG/250 ML BAG 166.67 MG IVPB ×2 (08:09→19:53)
[2025-06-21] MEDS: ENOXAPARIN 40 MG/0.4 ML SYRINGE SUB-Q (08:10)
[2025-06-21] MEDS: ASPIRIN 81 MG ENTERIC TABLET PO (08:11)
[2025-06-21] MEDS: ATORVASTATIN 40 MG TABLET PO (08:11)
[2025-06-21] MEDS: DICLOFENAC SOD 75 MG TABLET.EC PO ×2 (08:11→16:52)
[2025-06-21] MEDS: HYDROcodone/acetaminophen (*CRX) 5-325 MG TABLET 1 TAB PO ×3 (08:12→23:46)
[2025-06-21] MEDS: cefTRIAXone 1 GM in SODIUM CHLORIDE 0.9% IV 50 ML IVPB (11:31)
--- NOTE | 2025-06-21 12:30 | P.PNIM_ITS ---
Progress Note: A&P Assessment and Plan (1) Cellulitis: Code(s): L03.90 - Cellulitis, unspecified Status: Acute Assessment and Plan: Patient with right foot cellulitis secondary to removal of ingrown toenail on the right great toe. Does not meet sepsis criteria. Normal WBC. x-ray of foot without osteomyelitis but mild swelling. * Wound culture pending * IV antibiotics with ceftriaxone and vancomycin * Blood cultures pending * Pain management with acetaminophen, [place], and hydromorphone * Elevate extremity * Activity as tolerated * CT pending will update her vascular surgeon tomorrow with findings (2) Peripheral vascular disease with claudication: Code(s): I73.9 - Peripheral vascular disease, unspecified Status: Acute Assessment and Plan: Known peripheral arterial disease. Patient has plan peripheral arterial bypass scheduled for 06/30/2025. * Resume home aspirin and statin * Elevate extremity * Activity as tolerated * Right pedal and post tibial pulses 1+, monitor for signs and symptoms of claudication (3) Nicotine dependence, unspecified, uncomplicated: Code(s): F17.200 - Nicotine dependence, unspecified, uncomplicated Status: Acute Assessment and Plan: Patient states she is attempting to quit smoking. * Nicotine patch offered however patient declined * Smoking cessation education provided Plan Code status: Full code per patient DVT prophylaxis: Lovenox Stress ulcer prophylaxis: NA PT/OT notes: ambulatory Disposition: patient was admitted observation to medical unit will continue with IV antibiotics hopefully symptoms will improve and she can be transitioned to oral antibiotics. she is ambulatory on own and likely discharged home when medically stable. Time Spent With Patient Time with patient: 15 - 25 minutes Subjective Date/time seen: 06/21/25 12:30 Interval history: This 59-year-old female presented to the hospital yesterday evening with complaints of pain, swelling, and redness in her right lower extremity after recently having an ingrown toenail removed on 06/15/2025 by her diffusion operator. patient reports past medical history of HLD, nicotine dependency, and PAD. patient reported about 2 weeks prior she had seen her primary care physician regarding painful infection to her toe which time patient was given 10 days of clindamycin however once patient had completed her antibiotic course pain swelling had returned. Patient is scheduled for arterial bypass of the right lower extremity due to severe PAD in 14 days. patient states she followed up with her diffusion operator due to worsening pain and swelling with erythema to the right foot at which time diffusion operator had removed an ingrown toenail she then de veloped a open wound with drainage and came to the emergency department for further evaluation. Admitted for treatment of cellulitis 06/21/2025: Patient still with moderate swelling and severe pain to lower RT foot, WBC remains stable ordered CT for further evaluation. She denies fever, chills or feeling ill. Review of Systems Review of Systems: All systems reviewed & are unremarkable except as noted in HPI and below Exam Const: General: no acute distress HENMT: Mouth: Yes moist mucous membranes Eyes: General: appearance normal, both eyes and all related structures Neck: Neck: supple Resp: Effort & Inspection: normal respiratory effort Auscultation: clear to auscultation bilaterally Cardio: Rate: regular rate Rhythm: regular rhythm Other: Weak right pedal and posterior tibial pulses. RLE cool to touch. GI: Auscultation: normal bowel sounds Skin: Other: General skin exam: normal color and wounds noted (Healing wounds, scabbed, on the plantar and dorsal surface of right foot. ) Wounds: wounds noted (Healing wounds, scabbed, on the plantar and dorsal surface of right foot. ) Other: Cellulitis right great toe. Neuro: General: gait normal Speech: normal speech Motor exam (neuro): 5/5 motor strength present throughout Sensory Exam: normal sensation Extrem: General: pedal edema on the right Psych: Mental Status: mental status grossly normal Affect: normal affect Objective Data Vital Signs Vital Signs: Vital Signs - 24 hr 06/20/25 16:00 06/20/25 20:00 06/21/25 00:00 Temperature 98.8 F 98.2 F Pulse Rate 79 85 85 Respiratory Rate 16 16 16 Blood Pressure 123/54 L 114/61 Pulse Oximetry 94 94 94 Oxygen Delivery Room Air Room Air Room Air 06/21/25 08:00 Temperature 98.6 F Pulse Rate 86 Respiratory Rate 16 Blood Pressure 117/61 Pulse Oximetry 92 Oxygen Delivery Room Air Intake/Output Intake/Output: Intake & Output 06/18/25 06/19/25 06/20/25 06/21/25 23:59 23:59 23:59 23:59 Intake Total 3190 4340 2600 Balance 3190 4340 2600 Meds/Results Medications: Active Medications Generic Name Dose Route Start Last Admin Trade Name Freq PRN Reason Stop Dose Admin Acetaminophen 650 mg 06/19/25 01:49 06/19/25 21:33 Acetaminophen 325 Mg Tablet PO 650 mg Q4H PRN Administration Mild Pain (1-3) or Fever Hydrocodone Bitart/Acetaminophen 1 tab 06/19/25 10:22 06/21/25 08:12 Hydrocodone/Acetaminophen (*Crx) 5-325 Mg Tablet PO 1 tab Q4H PRN Administration Pain Rated 4-6 Aspirin 81 mg 06/19/25 11:00 06/21/25 08:11 Aspirin 81 Mg Enteric Tablet PO 07/20/25 10:59 81 mg DAILY MARTHA Administration Atorvastatin Calcium 40 mg 06/19/25 11:00 06/21/25 08:11 Atorvastatin 40 Mg Tablet PO 40 mg DAILY MARTHA Administration Cilostazol 100 mg 06/19/25 11:00 06/21/25 08:11 Cilostazol 100 Mg Tablet PO 100 mg BIDWM MARTHA Administration Diclofenac Sodium 75 mg 06/19/25 12:10 06/21/25 08:11 Diclofenac Sod 75 Mg Tablet.Ec PO 75 mg BIDWM MARTHA Administration Enoxaparin Sodium 40 mg 06/19/25 09:00 06/21/25 08:10 Enoxaparin 40 Mg/0.4 Ml Syringe SUB-Q 40 mg DAILY MARTHA Administration Hydromorphone HCl 1 mg 06/19/25 21:52 06/21/25 03:03 Hydromorphone Hcl Inj (*Crx) 2 Mg/Ml Vial IV PUSH 1 mg Q4HR PRN Administration Pain 7-10 Ceftriaxone Sodium 1 gm/ 50 mls @ 100 mls/hr 06/19/25 12:00 06/21/25 12:04 Sodium Chloride IVPB Infused Q12H MARTHA Infusion Vancomycin HCl 1,250 mg in 250 mls @ 166.667 mls/hr 06/21/25 20:00 Vancomycin 1,250 Mg/Ns 250 Ml IVPB Q12H MARTHA Naloxone HCl 0.1 mg 06/19/25 01:49 Naloxone Hcl 0.4 Mg/Ml Vial IV PUSH Q2M PRN Opiate Reversal Ondansetron HCl 4 mg 06/19/25 01:49 Ondansetron Inj 4 Mg/2 Ml Vial IV PUSH Q6H PRN Nausea And Vomiting Radiology Results: ITS Impressions Foot X-Ray 06/19/25 11:30 Impression: No acute fracture or malalignment. Foot CT 06/21/25 12:08 IMPRESSION: 1. Subcutaneous edema about the visualized lower leg most prominent over the dorsum of the foot. No abscess or soft tissue gas to suggest infection. 2. Peripheral vascular disease with occlusion of 2 tibial and posterior tibial arteries above level of the ankle and trace amount of contrast within the atretic peroneal artery which becomes indiscernible near the level of the ankle joint line. 2. Minimal to mild degenerative skeletal changes in the right foot. No acute osseous abnormality. Labs Labs: Laboratory Results - last 24 hr 06/21/25 06/21/25 05:24 08:07 WBC 10.1 RBC 3.03 L Hgb 9.7 L Hct 29.5 L MCV 97.4 MCH 32.0 H MCHC 32.9 RDW 14.2 Plt Count 311 MPV 9.2 Sodium 140 Potassium 4.3 Chloride 107 Carbon Dioxide 28 Anion Gap 5 BUN 11 Creatinine 0.56 L Estim Creat Clear Calc 79 Estimated GFR > 60 Glucose 96 Calculated Osmolality 289 Calcium 8.8 Magnesium 2.1 Total Bilirubin 0.3 AST 38 H ALT 39 H Alkaline Phosphatase 57 Total Protein 5.9 L Albumin 3.4 L Vancomycin Trough 8.2 L Quality VTE Prophylaxis VTE prophylaxis: pharmacologic ordered -Patient's previous records reviewed on admission -ER notes reviewed in detail on admission -discussed all findings and current treatment plan with patient/Family/POA -Consultations reviewed for recommendations -Patient's disposition for safe discharge discussed with home health care case manager Dictation performed by [employer] direct speech recognition software, therefore graphic user interface designer variants and typographical errors may occur. Hospitalist MIPS Advance Care Plan I have confirmed that the patient's Advanced Care Plan is present, code status is documented, or surrogate decision maker is listed in patient medical record.: Yes Medication Reconciliation I have utilized all available resources to obtain, update and review the patients current medications (includes all prescriptions, OTC, herbals, cannabis, and nutritional supplements).: Yes The patient is not eligible for med reconciliation; the patient is in a emergent medical situation where delaying treatment would jeopardize the patients health.: No
[2025-06-21 16:00] VITALS: BP 125/59; PULSE 92; RESP 16; TEMP 37.2; O2SAT 93
--- NOTE | 2025-06-21 19:00 | PC.NURSE ---
report from mojgan ulloa rn. resumed care of pt.
[2025-06-21] MEDS: ACETAMINOPHEN 325 MG TABLET 650 MG PO (19:45)
--- NOTE | 2025-06-21 22:51 | PC.NURSE ---
report to lindsey perez
[2025-06-21] MEDS: cefTRIAXone 1 GM in SODIUM CHLORIDE 0.9% IV 50 ML 100 ML IVPB (23:15)
[2025-06-22] VITALS: BP 140/50; PULSE 85; RESP 17; TEMP 37.6; O2SAT 95
[2025-06-22] MEDS: HYDROmorphone HCL INJ (*CRX) 2 MG/ML VIAL 1 MG IV PUSH (04:13)
[2025-06-22 05:27] LABS: Hematocrit 30.7 % (35.0-49.0); Hemoglobin 9.9 g/dL (12.0-15.0); Mean Corpuscular HGB Conc 32.2 g/dL (32-36); Mean Corpuscular Hemoglobin 31.4 pg (27.0-31.0); Mean Corpuscular Volume 97.5 fL (78.0-102.0); Platelet Count Result 312 K/mm3 (150-420); Red Blood Count 3.15 M/mm3 (4.20-5.40); White Blood Count 11.6 K/mm3 (4.8-10.8)
[2025-06-22 05:39] LABS: Alanine Aminotransferase 51 U/L (6-35); Albumin Level 3.5 g/dL (3.5-5.1); Alkaline Phosphatase 67 U/L (38-126); Anion Gap 6 mmol/L (4-12); Aspartate Amino Transferase 45 U/L (14-36); Bilirubin,Total 0.3 mg/dL (0.2-1.3); Blood Urea Nitrogen 12 mg/dL (7-17); Calcium 9.0 mg/dL (8.4-10.2); Carbon Dioxide 30 mmol/L (22-30); Chloride 103 mmol/L (98-107); Estimated CRCL calculation 70 ml/min; Estimated Glomerular Filt Rate > 60; Glucose 99 mg/dL (65-110); Magnesium 2.1 mg/dL (1.6-2.3); Osmolality Calculated 287 mOsm/kg (285-295); Potassium 4.3 mmol/L (3.4-5.0); Sodium 139 mmol/L (137-145); Total Protein 6.2 g/dL (6.3-8.2)
--- OUTSIDE RECORDS SUMMARY | 2025-06-22 07:44 | XMS_ITS | Clinical Summary ---
Author Organization [facility] Address [facility] [place] [address] Care Team Providers Care [employer] Battalion Chief Name Role Phone Unavailable Primary Care Provider [...] Hospital Encounter [facility] [address] [place] [address] Krystle Hearn MD [address] [place] [id number] 06/30/2025 8:00 AM CDT - 06/30/2025 11:40 AM CDT Surgery [facility] [address] [place] [address] Krystle Hearn MD [address] [place] [id number] LOWER EXTREMITY POPLITEAL CUTDOWN WITH ANGIOGRAM, POSSIBLE [...]
[2025-06-22 08:00] VITALS: BP 158/66; PULSE 86; RESP 17; TEMP 36.9; O2SAT 92
[2025-06-22] MEDS: VANCOMYCIN 1,250 MG/NS 250 ML 1,250 MG/250 ML BAG 166.67 MG IVPB (08:17)
[2025-06-22] MEDS: ATORVASTATIN 40 MG TABLET PO (08:18)
[2025-06-22] MEDS: ENOXAPARIN 40 MG/0.4 ML SYRINGE SUB-Q (08:18)
[2025-06-22] MEDS: ASPIRIN 81 MG ENTERIC TABLET PO (08:18)
[2025-06-22] MEDS: HYDROcodone/acetaminophen (*CRX) 5-325 MG TABLET 1 TAB PO (08:18)
[2025-06-22] MEDS: DICLOFENAC SOD 75 MG TABLET.EC PO (08:18)
--- NOTE | 2025-06-22 10:51 | P.DS_ITS ---
DS: Admitting Diagnosis Discharge Date 06/22/2025 Admitting Diagnosis cellulitis of the right lower extremity/ PAD DS: Discharge Diagnosis Discharge Diagnosis (1) Cellulitis: Code(s): L03.90 - Cellulitis, unspecified Status: Acute (2) Peripheral vascular disease with claudication: Code(s): I73.9 - Peripheral vascular disease, unspecified Status: Acute (3) Nicotine dependence, unspecified, uncomplicated: Code(s): F17.200 - Nicotine dependence, unspecified, uncomplicated Status: Acute DS: Summary Hospital Course Reason for hospitalization: cellulitis of the right lower extremity/ PAD Hospital Course: Admission: This 59-year-old female presented to the hospital yesterday evening with complaints of pain, swelling, and redness in her right lower extremity after recently having an ingrown toenail removed on 06/15/2025 by her line director. patient reports past medical history of HLD, nicotine dependency, and PAD. patient reported about 2 weeks prior she had seen her primary care physician regarding painful infection to her toe which time patient was given 10 days of clindamycin however once patient had completed her antibiotic course pain swelling had returned. Patient is scheduled for arterial bypass of the right lower extremity due to severe PAD in 14 days. patient states she followed up with her line director due to worsening pain and swelling with erythema to the right foot at which time line director had removed an ingrown toenail she then developed a open wound with drainage and came to the emergency department for further evaluation. patient had denied any chest pain, shortness a breath, dizziness, nausea, vomiting, abdominal pain, fever or chills. patient reports she has attempted to keep her foot elevated at home however continues to have severe swelling and pain. In the ED: patient's labs reviewed all within normal limits no leukocytosis noted and CRP was normal. foot x-ray showing no osteomyelitis with mild swelling. patient received IV Rocephin and vancomycin and IV analgesics and was determined have cellulitis of the right great toe. Hospital course: Patient was admitted to the hospital for further evaluation and management of her cellulitis. Right great toe continued to appear red, swollen, with scant purulent drainage. Wound culture obtained which grew Gram-positive cocci. Patient received acetaminophen, [place], hydromorphone for pain control and was advised to keep extremity elevated. educated patient on delayed wound healing due to her peripheral vascular disease patient is scheduled for June 30 for arterial bypass about right leg. CT foot here is subcutaneous edema about the visualized calf, ankle and extending most prominently over the dorsum of the foot. No evident abscess or soft tissue gas. Contrast is seen in the mid anterior tibial artery which occludes approximately 10 cm above the level of the ankle joint. Contrast is seen along short segments of the posterior tibial artery with intermittent occlusion the final occlusion occurring 4 cm above level of the ankle joint. Trace amount of contrast seen within the atretic peroneal artery extending to near the level of the ankle joint line. but did have scant palpable pedal pulse 1+. did speak with patient's vascular surgeon Dr. Bartholomew regarding current hospitalization and CT findings to degrees patient can discharge home on antibiotic therapy and plan for her follow-up surgery on June 30 patient once again educated on slow and delayed healing of the right foot continue to keep elevated at home. Patient encouraged on smoking cessation and advised to seek medical attention if current symptoms worsen. patient seen and assessed at time of discharge in no acute distress no new complaints patient discharged home with oral antibiotic therapy oral pain medication. Status at Discharge Functional status at discharge: independent ambulation Overall status at discharge: patient is progressing back to baseline Time Spent with Patient Time attestation: Total time spent providing and/or coordinating discharge services: Time spent: Greater than 30 minutes Exam Const: General: no acute distress HENMT: Mouth: Yes moist mucous membranes Eyes: General: appearance normal, both eyes and all related structures Neck: Neck: supple Resp: Effort & Inspection: normal respiratory effort Auscultation: clear to auscultation bilaterally Cardio: Rate: regular rate Rhythm: regular rhythm Other: Weak right pedal and posterior tibial pulses. RLE cool to touch. GI: Auscultation: normal bowel sounds Skin: Other: General skin exam: normal color and wounds noted (Healing wounds, scabbed, on the plantar and dorsal surface of right foot. ) Wounds: wounds noted (Healing wounds, scabbed, on the plantar and dorsal surface of right foot. ) Other: Cellulitis right great toe. Neuro: General: gait normal Speech: normal speech Motor exam (neuro): 5/5 motor strength present throughout Sensory Exam: normal sensation Extrem: General: pedal edema on the right Psych: Mental Status: mental status grossly normal Affect: normal affect DS: Data Data Completed and Pending Labs on day of discharge: Labs from last 24 hours 06/22/25 05:23 WBC 11.6 H RBC 3.15 L Hgb 9.9 L Hct 30.7 L MCV 97.5 MCH 31.4 H MCHC 32.2 RDW 14.2 Plt Count 312 MPV 9.0 L Sodium 139 Potassium 4.3 Chloride 103 Carbon Dioxide 30 Anion Gap 6 BUN 12 Creatinine 0.64 L Estim Creat Clear Calc 70 Estimated GFR > 60 Glucose 99 Calculated Osmolality 287 Calcium 9.0 Magnesium 2.1 Total Bilirubin 0.3 AST 45 H ALT 51 H Alkaline Phosphatase 67 Total Protein 6.2 L Albumin 3.5 Preliminary micro results at discharge 06/19/25 01:11 Blood Culture - Preliminary Blood 06/19/25 01:03 Blood Culture - Preliminary Blood Imaging Radiologist's impression: Radiology Results: ITS Impressions Foot X-Ray 06/19/25 11:30 Impression: No acute fracture or malalignment. Foot CT 06/21/25 12:08 IMPRESSION: 1. Subcutaneous edema about the visualized lower leg most prominent over the dorsum of the foot. No abscess or soft tissue gas to suggest infection. 2. Peripheral vascular disease with occlusion of 2 tibial and posterior tibial arteries above level of the ankle and trace amount of contrast within the atretic peroneal artery which becomes indiscernible near the level of the ankle joint line. 2. Minimal to mild degenerative skeletal changes in the right foot. No acute osseous abnormality. Discharge Plan Discharge Attending physician on discharge: Corky White Consulting providers: Abbi Morris Discharging Clinician: Abbi Morris Anticipated Discharge Date/Time: 06/22/25 10:58 Patient Disposition: Home Activity: may shower and as tolerated Diet: heart healthy and low cholesterol Discharge Instructions: 1). cellulitis/ peripheral arterial disease * oral Augmentin and doxycycline have been prescribed please continue to take as indicated been if feeling better incomplete therapy * elevate lower right extremity to reduce swelling * if symptoms worsen please seek medical attention * continue with your scheduled surgery with vascular on June 30 * your aspirin 24 hours prior to surgery * encouraged smoking cessation How can you care for yourself at home? ? Keep track of any new symptoms or changes in your symptoms. ? Rest until you feel better. ? Be safe with medicines. Take your medicines exactly as prescribed. Call your doctor if you think you are having a problem with your medicine. ? Do not drive after taking a prescription pain medicine. ? Ensure to follow-up with primary care physician as indicated and provide updated medication list provided to you at discharge. When should you call for help? Call 911 anytime you think you may need emergency care. For example, call if: ? You passed out (lost consciousness). Call your doctor now or seek immediate medical care if: ? You have new symptoms like fever, difficulty breathing, Chest pain, vomiting, or rash. ? You have new or different pain. ? You are confused and are having trouble thinking clearly. ? Your symptoms are getting worse. Watch closely for changes in your health, and be sure to contact your doctor if: ? You do not get better as expected. Patient Instructions: Antibiotic Form, Cellulitis (GEN), Peripheral Artery Disease (DC) Patient Language: Urdu Stand Alone Forms: General Discharge Information Follow-up/Referrals: Johny Dumont DO [Primary Care Provider, [facility]] - 4 Weeks Referral Note: Post surgery Discharge Medications: New amoxicillin-pot clavulanate 875-125 mg tablet 1 tablet PO Q12H Qty: 22 0RF hydrocodone-acetaminophen 5-325 mg Tablet 1 tablet PO Q6H PRN (Reason: Pain Rated 4-6) Qty: 30 0RF doxycycline hyclate 100 mg Tablet 100 mg PO Q12HR Qty: 21 0RF Continued acetaminophen [Tylenol Extra Strength] 500 mg tablet 500 mg PO Q6H PRN (Reason: pain) cilostazol 100 mg tablet 100 mg PO BID Qty: 60 0RF atorvastatin [Lipitor] 40 mg tablet 40 mg PO DAILY Qty: 90 0RF diclofenac potassium 50 mg tablet 50 mg PO BID Qty: 60 0RF aspirin 81 mg tablet 81 mg PO DAILY Qty: 30 0RF Rx Instructions: Hold at least 24 hours prior to surgery Date of admission: 06/20/25 14:00 Primary Care Provider: Johny Dumont Admitting Provider: Corky White Attending physician on admission: Corky White Condition: Stable Quality VTE Prophylaxis VTE prophylaxis: pharmacologic ordered -Patient's previous records reviewed on admission -ER notes reviewed in detail on admission -discussed all findings and current treatment plan with patient/Family/POA -Consultations reviewed for recommendations -Patient's disposition for safe discharge discussed with nurse outreach case manager Dictation performed by [employer] direct speech recognition software, therefore lead radiation therapist variants and typographical errors may occur. Hospitalist MIPS Heart Failure (Exclusion) Patient has history of Heart Transplant or Left Ventricular Assistive Device?: No IF YES, STOP HERE Heart Failure (Qualifier) Patient has current or prior documentation of LVEF less than or equal to 40%, or mod/servere depressed LVSF?: No IF NO, STOP HERE
--- NOTE | 2025-06-22 11:45 | PC.NURSE ---
Discharge instructions reviewed with patient. All questions answered. Pt asked if her pre op appointment tomorrow was necessary since she had seen a ELECTRICAL TECHNICIAN INSTRUCTOR today. This nurse instructed patient to contact surgeon's office to see if the appointment would be necessary. Pt ambulated with escort from RT. Sylvester
--- NOTE | 2025-06-25 08:35 | PC.NURSE ---
Discharge call back completed, doing ok, still avi pain, to have surgery saturday, no questions regarding medications
== END 2025-06-22 11:45 | disposition home or self-care (01) | DRG 383 ==
LOC: CHSED 00:52 → CHS2ND 08:38
PROVIDERS: Nurse Practitioner Family; Admitting Provider Internal Medicine; Emergency Provider Emergency Medicine; PCP Family Medicine; Visit Provider Internal Medicine
DX: L03.031 Cellulitis of right toe (principal); I73.9 Peripheral vascular disease, unspecified; E78.5 Hyperlipidemia, unspecified; B96.89 Other specified bacterial agents as the cause of diseases classified elsewhere; F17.210 Nicotine dependence, cigarettes, uncomplicated; Z90.49 Acquired absence of other specified parts of digestive tract; Z79.82 Long term (current) use of aspirin
CPT/HCPCS: 36415; 73630; 73702; 80053; 80202; 83605; 83735; 85025; 85027; 86140; 87040; 87075; 87205; 96365; 96375; 99285; A9270; G0378; J0696; J1171; J1650; J2405; J3373; J7030; Q9967